=== PATIENT | male | born 1945 | race Caucasian/White ===

== ENCOUNTER 2017-07-26 08:33 | Outpatient (RCR) | payer MEDICARE, SELFPAY | END 2017-08-03 23:59 | LOC: DC 08:33 | PROVIDERS: Family Provider Family Medicine; PCP Family Medicine; Visit Provider Family Medicine | DX: E11.9 Type 2 diabetes mellitus without complications (principal); Z71.3 Dietary counseling and surveillance | CPT/HCPCS: 97802 ==

== ENCOUNTER 2017-08-24 08:30 | Outpatient (RCR) | payer MEDICARE, SELFPAY ==
[2017-07-20 14:33] VITALS: BP 111/71; BMI 17.5
== END 2017-08-31 23:59 ==
LOC: DC 08:30
PROVIDERS: Family Provider Family Medicine; PCP Family Medicine; Visit Provider Family Medicine
DX: E11.9 Type 2 diabetes mellitus without complications (principal); Z71.3 Dietary counseling and surveillance
CPT/HCPCS: 97803; G0108

== ENCOUNTER 2017-09-06 09:49 | Outpatient (RCR) | payer MEDICARE, SELFPAY | END 2017-10-01 23:59 | LOC: DC 09:49 | PROVIDERS: Family Provider Family Medicine; PCP Family Medicine; Visit Provider Family Medicine | DX: E11.9 Type 2 diabetes mellitus without complications (principal); Z71.3 Dietary counseling and surveillance | CPT/HCPCS: 97803 ==

== ENCOUNTER → 2017-10-04 11:57 | Outpatient (CLI) | payer MEDICARE, SELFPAY ==
[2017-10-04 12:23] LABS: Anion Gap 7 (5-15); BUN 20 mg/dL (7-18); BUN/Creat Ratio 21.6 RATIO (10-20); Calcium,Total 8.7 mg/dL (8.5-10.1); Chloride 107 mmol/L (98-107); Cholesterol 106 mg/dL (200); Creatinine, Serum 0.92 mg/dL (0.70-1.30); EST Glomerular Filtration Rate 85 mL/min (>60); Est Glom Filt Rate - Afr Amer 103 mL/min (>60); Glucose 134 mg/dL (74-106); Hemoglobin A1c 6.6 % (4.2-6.3); High Density Lipoprotein 47 mg/dL; Potassium 4.1 mmol/L (3.5-5.1); Sodium Level 141 mmol/L (136-145); Triglycerides 62 mg/dL; Very Low Density Lipoprotein 12 mg/dL (5-40)
[2017-10-04 12:33] LABS: Microalbumin,Random Urine 10.4 mg/L (NO RANGE EST.); Microalbumin:Creatinine Ratio 9.3 mg/g CRE (<30 mg/g CRE)
== END ==
PROVIDERS: Family Provider Family Medicine; PCP Family Medicine; Visit Provider Family Medicine
DX: E11.9 Type 2 diabetes mellitus without complications (principal); Z79.4 Long term (current) use of insulin; E78.5 Hyperlipidemia, unspecified
CPT/HCPCS: 80048; 80061; 82043; 82570; 83036

== ENCOUNTER 2017-10-06 15:23 | Outpatient (RCR) | payer MEDICARE, SELFPAY | END 2017-10-31 23:59 | LOC: DC 15:23 | PROVIDERS: Family Provider Family Medicine; PCP Family Medicine; Visit Provider Family Medicine | DX: E11.9 Type 2 diabetes mellitus without complications (principal); Z71.3 Dietary counseling and surveillance | CPT/HCPCS: G0109 ==

== ENCOUNTER 2017-11-23 14:00 | Outpatient (RCR) | payer MEDICARE, SELFPAY | END 2017-12-01 23:59 | LOC: DC 14:00 | PROVIDERS: Family Provider Family Medicine; PCP Family Medicine; Visit Provider Family Medicine | DX: E11.9 Type 2 diabetes mellitus without complications (principal); Z71.3 Dietary counseling and surveillance | CPT/HCPCS: G0109 ==

== ENCOUNTER 2017-12-14 14:22 | Outpatient (RCR) | payer MEDICARE, SELFPAY | END 2017-12-31 23:59 | LOC: DC 14:22 | PROVIDERS: Family Provider Family Medicine; PCP Family Medicine; Visit Provider Family Medicine | DX: E11.9 Type 2 diabetes mellitus without complications (principal); Z71.3 Dietary counseling and surveillance | CPT/HCPCS: G0109 ==

== ENCOUNTER → 2018-01-02 07:17 | Outpatient (CLI) | payer MEDICARE, SELFPAY ==
[2018-01-02 09:40] LABS: Hemoglobin A1c 6.9 % (4.2-6.3)
== END ==
PROVIDERS: Family Provider Family Medicine; PCP Family Medicine; Visit Provider Nurse Practitioner
DX: E11.9 Type 2 diabetes mellitus without complications (principal)
CPT/HCPCS: 36415; 83036

== ENCOUNTER 2018-01-11 15:59 | Outpatient (RCR) | payer MEDICARE, SELFPAY | END 2018-01-11 23:59 | LOC: DC 15:59 | PROVIDERS: Family Provider Family Medicine; PCP Family Medicine; Visit Provider Family Medicine | DX: E11.9 Type 2 diabetes mellitus without complications (principal); Z71.3 Dietary counseling and surveillance | CPT/HCPCS: G0109 ==

== ENCOUNTER 2018-01-27 05:57 | Emergency (ER) | payer MEDICARE, SELFPAY ==
[2018-01-27 05:58] VITALS: BP 114/63; PULSE 66; RESP 16; TEMP 36.1; O2SAT 100; BMI 23.3
--- NOTE | 2018-01-27 06:21 | RAD_ITS ---
STUDY: X-RAY - UNILATERAL RIBS ( RIGHT ) WITH CHEST REASON FOR EXAM: Male, 73 years old. Trauma TECHNIQUE - RIBS: 3 view(s) of the ribs. TECHNIQUE - CHEST: Single frontal view of the chest. COMPARISON: Chest 08/03/2014 FINDINGS - RIBS: A nondisplaced fracture of right rib 8 is suspected. FINDINGS - CHEST: The lungs are clear and expanded. There is no demonstrated pleural abnormality. Normal size heart. Normal mediastinum and lucila. Normal visualized pulmonary arteries. Normal visualized aortic arch and descending thoracic aorta. Normal visualized thoracic spine. There is no demonstrated abnormality of the visualized soft tissue structures of the upper abdomen. RAD/Ribs Uni Min 3V w/PA Chest IMPRESSION: RIBS: A nondisplaced fracture of right rib 8 is suspected. CHEST: No acute pulmonary findings. Electronically Signed: Daniel Sparrow MD at 7:22 EDT Tel , Service support ,
--- NOTE | 2018-01-27 06:31 | ED.DCSUM_ITS ---
History of Present Illness Chief Complaint: Fall Informant: Patient Onset: Yesterday Context: Sudden Onset Timing: Continuous Quality: ache/sore Current Severity: Moderate Maximum Severity: Severe Worsened by: movement, especially w/ sitting up. mildly worse w/ deep inspiration Relieved by: remaining still Associated Symptoms: no other injuries except abrasion to right forearm. no dyspnea. Narrative: Patient tripped or slipped, falling down 2 steps to concrete below at his home. Right on his right rib cage. This occurred last night, 10 or so hours prior to arrival in the ED. The pain has worsened overnight, and he states lying on his right side hurts the worse, as does sitting up actively. - Past Medical History (1) Diabetes mellitus type 2, controlled, without complications Status: Chronic Comment: Has been able to bring A1c from 7 range down to 6.6 without as many lows. However now that warmer weather is here he is having more low BG. I have ask him to take lantus down to 11-12 from his current dose of 13 as his low BG are related to long acting insulin. His meal coverage appears neutral. On asa On statin On artemio inhibitor; BP in range. Past Medical History - Allergies and Home Meds Allergies/Adverse Reactions: Allergies Antihistamines - Alkylamine Allergy (Verified 01/27/18 05:58) Other SHRIMP Allergy (Uncoded 01/27/18 05:58) Anaphylaxis Primary Care Physician: Naldo Santillan III, MD [Primary Care Provider] - 1 Week if not improving Lives: Spouse/ Significant Other Smoking Status: Never smoker Review of Systems All systems negative except as indicated Cardiovascular: Reports: Chest pain. Denies: Palpitations Respiratory: Denies: Dyspnea, Cough Gastrointestinal: Denies: Abdominal pain, Nausea, Vomiting Musculoskeletal: Reports: Back pain - Right ribs, mid back. Denies: Neck pain, Extremity Pain Skin: Reports: Abrasions Neurological: Denies: Headache, Weakness, Parasthesia Physical Exam Vital Signs/Narrative: Vital Signs Temp Pulse Resp BP Pulse Ox 01/27/18 05:58 97.0 F L 66 16 114/63 100 Inital Vital Signs reviewed: Yes General: Well nourished, Well developed, - - Well-appearing in no acute distress Head: Normocephalic, Atraumatic Eyes: Perrl, EOMI Neck: Supple, Nontender Cardiovascular: Regular rate, Regular rhythm, No murmurs Respiratory: No distress, CTA bilaterally, Chest tenderness - Mostly at right rib #7 or 8, just below right breast. No crepitance or subcutaneous emphysema. No bruising or external evidence of trauma., - - Equal breath sounds bilaterally. No splinting with deep inspiration. Abdomen: Soft, Nontender, Nondistended, Normal bowel sounds Back: Normal Inspection, - - Mildly tender to palpation right mid back paraspinal area. Negative for: Spinal tenderness Extremities: Nontender, No edema, - - Full range of motion all 4 extremities including right upper extremity at the elbow Skin: Normal color, No rash, Trauma - Superficial abrasions right dorsal proximal forearm, just distal to olecranon process. No tenderness. No lacerations. Neurological: Alert, Oriented x3, Cranial nerves II-XII grossly intact, Normal Strength, Normal Sensation, Normal Gait Psychological: Normal affect Diagnostic/Tx/Re-eval Impressions Ribs w/Chest X-Ray 01/27/18 06:21 IMPRESSION: RIBS: A nondisplaced fracture of right rib 8 is suspected. CHEST: No acute pulmonary findings. Electronically Signed: Daniel Sparrow MD at 7:22 EDT Tel , Service support , 01/27/18 06:21 Ribs Uni Min 3V w/PA Chest [RAD] Stat - Medical Decision Making Patient declined analgesics. X-rays show nondisplaced fracture of the right eighth rib, consistent with where he is tender. No pneumothorax or signs of a pulmonary contusion. He is clinically and hemodynamically stable. He is agreeable to taking a prescription for [facility] to use as needed, given appropriate discharge instructions and follow-up. ED Disposition - Plan for ED Patient: Disposition: Home or Assisted Living Chief Complaint: Fall Diagnosis: Right rib fracture Instructions: ED Fx Rib Prescriptions: Hydrocodone/Acetaminophen [[facility] 5-325 Tablet] 1 - 2 ea PO 4X/DAY PRN PRN 3 Days #12 tab PRN Reason: Pain Referrals: Naldo Santillan III, MD [Primary Care Provider] - 1 Week if not improving
--- NOTE | 2018-01-27 06:52 | NURSING ---
NO LW OR POA
== END 2018-01-27 07:55 | disposition home or self-care (01) ==
PROVIDERS: Emergency Provider Emergency Medicine; Family Provider Family Medicine; PCP Family Medicine
DX: S22.31XA Fracture of one rib, right side, initial encounter for closed fracture (principal); W10.8XXA Fall (on) (from) other stairs and steps, initial encounter; Y93.89 Activity, other specified; Y92.009 Unspecified place in unspecified non-institutional (private) residence as the place of occurrence of the external cause; E11.9 Type 2 diabetes mellitus without complications; Z79.4 Long term (current) use of insulin; Z79.84 Long term (current) use of oral hypoglycemic drugs; Z79.82 Long term (current) use of aspirin; Z79.899 Other long term (current) drug therapy
CPT/HCPCS: 71101; 99282

== ENCOUNTER → 2018-03-28 06:56 | Outpatient (CLI) | payer MEDICARE, SELFPAY ==
[2018-03-28 08:13] LABS: Hemoglobin A1c 6.5 % (4.2-6.3)
[2018-03-28 08:18] LABS: AST(SGOT) 17 U/L (15-37); Alanine Aminotransfer ALT/SGPT 24 U/L (16-61); Albumin, Serum 3.5 g/dL (3.2-5.0); Alkaline Phosphatase 82 U/L (45-117); Anion Gap 5 (5-15); BUN 12 mg/dL (7-18); Calcium,Total 8.8 mg/dL (8.5-10.1); Chloride 105 mmol/L (98-107); Creatinine, Serum 0.92 mg/dL (0.70-1.30); EST Glomerular Filtration Rate 85 mL/min (>60); Est Glom Filt Rate - Afr Amer 103 mL/min (>60); Globulin 3.5 g/dL (2.2-4.2); Glucose 62 mg/dL (74-106); Potassium 3.9 mmol/L (3.5-5.1); Sodium Level 140 mmol/L (136-145); Thyroid Stim Hormone (TSH) 6.12 uIU/mL (0.358-3.74)
== END ==
PROVIDERS: Family Provider Family Medicine; PCP Family Medicine; Referring Provider Nurse Practitioner; Visit Provider Nurse Practitioner
DX: E11.9 Type 2 diabetes mellitus without complications (principal); Z79.4 Long term (current) use of insulin
CPT/HCPCS: 36415; 80053; 83036; 84443

== ENCOUNTER → 2018-05-08 06:57 | Outpatient (CLI) | payer MEDICARE, SELFPAY ==
[2018-05-08 09:22] LABS: Free T3 2.6 pg/mL (2.18-3.98); T4 Free Direct 0.77 ng/dL (0.76-1.46); Thyroid Stim Hormone (TSH) 6.51 uIU/mL (0.358-3.74)
[2018-05-09 13:40] LABS: Thyroid Peroxidase AB 64 IU/mL (0-34)
== END ==
PROVIDERS: Family Provider Family Medicine; PCP Family Medicine; Referring Provider Nurse Practitioner; Visit Provider Nurse Practitioner
DX: R94.6 Abnormal results of thyroid function studies (principal)
CPT/HCPCS: 36415; 84439; 84443; 84481; 86376

== ENCOUNTER → 2018-06-20 07:35 | Outpatient (CLI) | payer MEDICARE, SELFPAY ==
[2018-06-19 09:26] VITALS: BMI 24.1
[2018-06-20 08:21] LABS: Hemoglobin A1c 7.6 % (4.2-6.3)
[2018-06-20 08:35] LABS: ALB/GLOB Ratio 1.1 RATIO (0.9-2.4); AST(SGOT) 19 U/L (15-37); Alanine Aminotransfer ALT/SGPT 26 U/L (16-61); Albumin, Serum 3.7 g/dL (3.2-5.0); Alkaline Phosphatase 87 U/L (45-117); Anion Gap 9 (5-15); BUN 15 mg/dL (7-18); BUN/Creat Ratio 15.7 RATIO (10-20); Calcium,Total 8.7 mg/dL (8.5-10.1); Chloride 107 mmol/L (98-107); Cholesterol 138 mg/dL (200); Creatinine, Serum 0.96 mg/dL (0.70-1.30); EST Glomerular Filtration Rate 82 mL/min (>60); Est Glom Filt Rate - Afr Amer 99 mL/min (>60); Globulin 3.4 g/dL (2.2-4.2); Glucose 74 mg/dL (74-106); High Density Lipoprotein 60 mg/dL; Potassium 4.5 mmol/L (3.5-5.1); Protein, Total 7.1 g/dL (6.4-8.2); Sodium Level 144 mmol/L (136-145); Thyroid Stim Hormone (TSH) 5.05 uIU/mL (0.358-3.74); Triglycerides 79 mg/dL; Very Low Density Lipoprotein 16 mg/dL (5-40)
--- OUTSIDE RECORDS SUMMARY | 2018-09-21 12:36 | XMS RPT_ITS ---
:1945 Author Organization OHIP Support Name Relationship Address Phone ELIO, RUTH Unavailable [address] + [place] [address] R Unavailable Unavailable Unavailable ELIO, RUTH Unavailable [address] + [place] [address] R Unavailable Unavailable Unavailable ELIO, RUTH Unavailable [address] + [place] [address] R Unavailable Unavailable Unavailable ELIO, RUTH Unavailable [address] + [place] [address] R Unavailable Unavailable Unavailable ELIO, RUTH Unavailable [address] + [place] [address] R Unavailable Unavailable Unavailable ELIO, RUTH Unavailable [address] + [place] [address] R Unavailable Unavailable Unavailable ELIO, RUTH Unavailable [address] + [place] [address] R Unavailable Unavailable Unavailable ELIO, RUTH Unavailable [address] + [place] [address] R Unavailable Unavailable Unavailable ELIO, RUTH Unavailable [address] + [place] [address] R Unavailable Unavailable Unavailable ELIO, RUTH Unavailable [address] + [place] [address] R Unavailable Unavailable Unavailable ELIO, RUTH Unavailable [address] + [place] [address] R Unavailable Unavailable Unavailable ELIO, RUTH Unavailable [address] + [place] [address] R Unavailable Unavailable Unavailable ELIO, RUTH Unavailable [address] + [place] [address] R Unavailable Unavailable Unavailable ELIO, RUTH Unavailable Unavailable + [place] [address] R Unavailable Unavailable Unavailable ELIO, RUTH Unavailable Unavailable + [place] [address] R Unavailable Unavailable Unavailable ELIO, RUTH Unavailable . + [place] [address] R Unavailable Unavailable Unavailable ELIO, RUTH Unavailable . + [place] [address] R Unavailable Unavailable Unavailable ELIO, RUTH Unavailable . + [place] [address] R Unavailable Unavailable Unavailable Care Team Providers Name Role Phone CEBUL III, NALDO A Referring Unavailable CEBUL III, NALDO A Attending Unavailable CEBUL III, NALDO A Referring Unavailable CEBUL III, NALDO A Attending Unavailable CEBUL III, NALDO A Attending Unavailable CEBUL III, NALDO A Referring Unavailable Shook, Migdalia Shore BUSINESS REPRESENTATIVE-C Attending Unavailable Cebul III, Naldo Referring Unavailable Shook, Migdalia Shore BUSINESS REPRESENTATIVE-C Attending Unavailable ShookMigdalia BUSINESS REPRESENTATIVE-C Referring Unavailable Cebul III, Naldo Primary Care Unavailable Cebul III, Naldo Attending Unavailable Cebul III, Naldo Referring Unavailable Cebul III, Naldo Primary Care Unavailable Cebul III, Naldo Consulting Unavailable ShookMigdalia BUSINESS REPRESENTATIVE-C Attending Unavailable Cebul III, Naldo Referring Unavailable Cebul III, Naldo Attending Unavailable Cebul III, Naldo Referring Unavailable Cebul III, Naldo Primary Care Unavailable Cebul III, Naldo Consulting Unavailable Cebul III, Naldo Attending Unavailable Cebul III, Naldo Referring Unavailable Cebul III, Naldo Primary Care Unavailable Cebul III, Naldo Consulting Unavailable Cebul III, Naldo Attending Unavailable Cebul III, Naldo Primary Care Unavailable Cebul III, Naldo Referring Unavailable ShookMigdalia BUSINESS REPRESENTATIVE-C Attending Unavailable Cebul III, Naldo Referring Unavailable Cebul III, Naldo Attending Unavailable Cebul III, Naldo Referring Unavailable Cebul III, Naldo Primary Care Unavailable Cebul III, Naldo Consulting Unavailable Cebul III, Naldo Attending Unavailable Cebul III, Naldo Referring Unavailable Cebul III, Naldo Primary Care Unavailable Cebul III, Naldo Consulting Unavailable ShookMigdalia BUSINESS REPRESENTATIVE-C Attending Unavailable Cebul III, Naldo Referring Unavailable Cebul III, Naldo Attending Unavailable Cebul III, Naldo Referring Unavailable Cebul III, Naldo Primary Care Unavailable Cebul III, Naldo Consulting Unavailable ShookMigdalia BUSINESS REPRESENTATIVE-C Attending Unavailable ShookMigdalia BUSINESS REPRESENTATIVE-C Referring Unavailable Cebul III, Naldo Primary Care Unavailable Cebul III, Naldo Primary Care Unavailable GABRIELLA, ESAU Attending Unavailable Cebul III, Naldo Attending Unavailable Cebul III, Naldo Referring Unavailable Cebul III, Naldo Primary Care Unavailable Cebul III, Naldo Consulting Unavailable ShosarinaMigdalia BUSINESS REPRESENTATIVE-C Attending Unavailable Cebul III, Naldo Referring Unavailable Cebul III, Naldo Primary Care Unavailable Shosarina Migdalia Shore BUSINESS REPRESENTATIVE-C Attending Unavailable Shosarina Migdalia Shore BUSINESS REPRESENTATIVE-C Referring Unavailable Cebul III, Naldo Primary Care Unavailable ShosarinaMigdalia BUSINESS REPRESENTATIVE-C Attending Unavailable Shook Migdalia Shore BUSINESS REPRESENTATIVE-C Referring Unavailable Cebul III, Naldo Primary Care Unavailable PROBLEMS PROBLEMS DATE TYPE CONDITION / CODE ATTENDING STATUS SOURCE 06/19/2018 Unknown E11.9 - Type 2 Migdalia Monsalve Active [place] diabetes mellitus BUSINESS REPRESENTATIVE-C Community without Hospital complications / Repository E11.9(ICD-10) 06/19/2018 Unknown E10.9 - Type 1 Migdalia Monsalve Active [place] diabetes mellitus BUSINESS REPRESENTATIVE-C Community without Hospital complications / Repository E10.9(ICD-10) 06/19/2018 Unknown E03.9 - Migdalia Monsalve Active [facility] Hypothyroidism, BUSINESS REPRESENTATIVE-C Community unspecified / Hospital E03.9(ICD-10) Repository 03/27/2018 Unknown 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 Monsalve Active [place] (current) use of BUSINESS REPRESENTATIVE-C Community insulin / Hospital Z79.4(ICD-10) Repository 01/27/2018 Unknown S22.31XA - Fracture ESAU QUIROZ Active [place] of one rib, right Community side, initial Hospital encounter for Repository closed fracture / S22.31XA(ICD-10) 04/02/2015 Active Hyperlipidemia, NA Active [facility] unspecified / [facility] [place] E78.5(ICD-10) Repository 10/04/2017 Active Type 2 diabetes NA Active [facility] mellitus without [facility] [place] complications / Repository E11.9(ICD-10) 10/04/2017 Active assisted (current) NA Active [facility] use of insulin / [facility] [place] Z79.4(ICD-10) Repository PROCEDURES PROCEDURES No Procedure Records FoundRESULTS RESULTS PROGRESS Observed: 07/01/2018 Status: COMPLETED Source: [place] 3:38 PM [facility] RE[facility]ITORY HNO ID: [id number] Author: Naldo Santillan III Service: (none) Author Type: Physician Type: Progress Notes Filed: 07/01/2018 3:38 PM Note Text: Doroteo, The hemoglobin A1c has increased from 6.9-7.6. You need to tighten up your diet a lot better and be sure to continue exercise. Follow up with PEMA monsalve if she is the primary residential leasing manager of your diabetic medication doses. We will need another hemoglobin A1c in 3 months. Naldo Santillan III, MD, FAAFP HEMOGLOBIN A1C Collected: 06/20/2018 Status: F Source: [place] 7:40 AM [facility] REPOSITORY TYPE CODE TESTS RESULT OUT OF RANGE REFERENCE UNITS LAB L501.9985 4.2-6.3 % High HGB A1C 7.6 Performed By: #### L501.9985 #### [facility] [address] [place], [place], [address] COMPREHENSIVE METABOLIC Collected: 06/20/2018 Status: F Source: [facility] 7:40 AM [facility] REPOSITORY TYPE CODE TESTS RESULT OUT OF RANGE REFERENCE UNITS LAB L501.0100 74-106 mg/dL Normal GLU 74 Result Comment: Please note revised GLUCOSE reference range effective 2017. LAB L501.1000 7-18 mg/dL Normal BUN 15 LAB L501.1100 0.70-1.30 mg/dL Normal CREAT,SERUM 0.96 Result Comment: The validity of the calculated GFR AND GFRAA in patients over 70 years has not been determined. Clinical correlation is essential. LAB L501.1110 >60 mL/min Normal EST GFR 82 Result Comment: Non- GFR Calc LAB L501.1115 >60 mL/min Normal EST GFR - AA 99 Result Comment: GFR Calc LAB L501.1300 10-20 RATIO Normal BUN/CRE 15.7 LAB L501.1500 6.4-8.2 g/dL T Normal PROT 7.1 LAB L501.1800 3.2-5.0 g/dL Normal ALB 3.7 LAB L501.1950 2.2-4.2 g/dL Normal GLOB 3.4 LAB L501.2000 0.9-2.4 RATIO Normal A/G 1.1 LAB L501.2200 8.5-10.1 mg/dL CA Normal 8.7 LAB L501.4100 15-37 U/L Normal AST 19 LAB L501.4305 45-117 U/L Normal ALK P 87 LAB L501.4405 16-61 U/L Normal ALT 26 LAB L501.4600 0.20-1.00 mg/dL T Normal BILI 0.80 LAB L501.5300 136-145 mmol/L NA Normal 144 LAB L501.5600 3.5-5.1 mmol/L K Normal 4.5 LAB L501.5900 98-107 mmol/L CL Normal 107 LAB L501.6100 21.0-32.0 mmol/L Normal CO2 28.0 LAB L501.6200 5-15 Normal GAP 9 Performed By: #### L500.4050, L500.4100, L501.9520 #### [facility] [address] [place], [place], [id number] LIPID PROFILE Collected: 06/20/2018 Status: F Source: [place] 7:40 AM [facility] REPOSITORY TYPE CODE TESTS RESULT OUT OF RANGE REFERENCE UNITS LAB L501.4900 200 mg/dL Normal CHOL 138 Result Comment: <200 mg/dL Desirable 200-240 mg/dL Borderline >240 mg/dL High Risk LAB L501.5000 mg/dL Normal TRIG 79 Result Comment: The drugs N-Acetylcysteine and Metamizole may falsely depress this assay. Serum Triglycerides Reference Interval Normal <150 mg/dL Borderline high 150 - 199 mg/dL High 200 - 499 mg/dL Very High > or = 500 mg/dL LAB L501.6400 mg/dL Normal HDL 60 Result Comment: The drugs N-Acetylcysteine and Metamizole may falsely depress this assay. Reference Range HDL <40 mg/dL Low HDL Cholesterol HDL >or= 60 mg/dL High HDL Cholesterol LAB L501.6500 0-130 mg/dL Normal LDL 62 LAB L501.6600 5-40 mg/dL Normal VLDL 16 Performed By: #### L500.4050, L500.4100, L501.9520 #### [facility] [address] [place], [place], [id number] THYROID STIM HORMONE Collected: 06/20/2018 Status: F Source: [place] ([facility]) 7:40 AM [facility] REPOSITORY TYPE CODE TESTS RESULT OUT OF RANGE REFERENCE UNITS LAB L501.9520 0.358-3.74 uIU/mL High TSH 5.05 Performed By: #### L500.4050, L500.4100, L501.9520 #### [facility] [address] [place], [address] ENDOCRINOLOGY VISIT Observed: 06/19/2018 Status: F Source: [place] REPORT 1:00 PM [facility] REPOSITORY [facility] [address] [place] [address] OFFICE VISIT Date of Service: 06/19/18 MR#: [id number] Acct: [id number] Name: WESLEY BARFIELD Rep #: [id number] : 1945 Provider: Migdalia Monsalve NP Age/Sex: 73/M Location: [facility] Status: Signed HPI History of present illness Wesley Barfield is a 73 year old male who presents for follow up of diabetes type 2. Reports most BG average 137. He is now having low BG at night while sleeping again but not as frequent during the day. Currently he is taking lantus 12 units daily and meal coverage with humalog 4 units each meal. Pt denies difficulty with injections or self monitoring of BG. Denies any signs of infection or irritation at site of injections. Reports taking insulin as directed At time of visit: -Pt denies symptoms of hypertensive emergency (CP,SOB,CONNELLY, or blurred vision) and hypotension(dizziness or lightheadedness) -Pt denies symptoms of hypoglycemia ( sweaty, confusion, anxiety, tremor, hunger, palpitations) and hyperglycemia ( polydipsia, polyuria) -Pt denies potential medication adverse effect. Hypoglycemia Aware of hypoglycemia: yes Able to self treat low BG: Yes Frequent low Blood sugar: No Has supply of glucagon: Yes Type: type 2 SMBG 4-6 times daily A1c in range BG 50-140 Thyroid labs remains with elevated TSH and low normal T4. Patient reports brain fog and fatigue. Severity, modifying factors, context, and associated signs and symptoms are as follows: Thyroid pain: No Energy: Reduced Sleep: awakened refreshed Temp: No intolerance GI: Normal bowel Weight: Flucuates Eyes: No change in vision Memory: unchanged Diaphoresis: Not significant Skin: Dry Hair : Unchanged Neuro: No numbness, tingling or tremors Exam Const General: healthy appearing, comfortable, no acute distress Nutritional Appearance: average body habitus Orientation: oriented x3 HENMT Head: normal to inspection, atraumatic Ears: hearing grossly normal bilaterally Nose: no nasal discharge Mouth: oral mucosae normal, moist mucous membranes Teeth and gingiva: dentition normal Eyes General: appearance normal, both eyes and all related structures Eyelids: eyelids normal Conjunctivae: conjunctivae normal Sclera: sclerae normal Neck Neck: normal visual inspection Chest Chest palpation AND inspection: deferred Resp Effort AND Inspection: normal respiratory effort, able to speak in complete sentences, symmetric chest movement Cardio Rate: regular rate Rhythm: regular rhythm Heart Sounds: S1 normal, S2 normal GI Inspection: normal to inspection Auscultation: normal bowel sounds Palpation: soft Skin General: no rashes or lesions noted Wounds: no wounds Neuro General: gait normal, moves all extremities Cranial Nerves: CN's II-XI intact bilaterally Extrem General: normal to inspection, full ROM, normal capillary refill Psych Appearance: well kempt Mental Status: mental status grossly normal Mood: congruent mood Affect: normal affect Speech and Movement: speech and movement normal Attitude: cooperative Thought Process: normal Thought Content: normal Judgment: judgment good Type: type 1, insulin-requiring Glucose control symptoms: Reports hypoglycemic with activity and nocturnal hypoglycemia Weight and fatigue symptoms: Reports weight gain; denies snoring Cardiopulmonary symptoms: Denies chest pain at rest, dyspnea on exertion, lightheadedness or myalgias GI symptoms: Denies constipation, diarrhea, nausea/dyspepsia or vomiting Skin and extremity symptoms: Denies erectile dysfunction or tingling/numbness/burning Other symptoms: Denies blurry vision or change in vision Pertinent visit history: Denies recent visit to ER, recent hospital admission or recent 911 calls Self monitoring: Yes Percentage of fasting blood glucose within goal: >50% of the time Dietary compliance: Diabetes: good Diabetes education in past year: Yes Glucose testing: demonstrates correct use of meter, understands testing schedule Sick day education - understands ketone testing: Yes Physical activity: regular Intake Vital Signs06/19/18 Height 5 ft 9 in 06/19/18 Weight: 163 lb 8 oz 06/19/18 Body Mass Index (BMI) 24.1 06/19/18 Blood Pressure 117/71 06/19/18 Blood Pressure Location Lt popliteal 06/19/18 Blood Pressure Position Sitting Intake Visit Reasons: Diabetes follow-up Head Of History Required: No Accompanied by: Self Allergies Antihistamines - Alkylamine Allergy (Verified 06/19/18 09:24) Other SHRIMP Allergy (Uncoded 06/19/18 09:24) Anaphylaxis Medications acetylcysteine (bulk) powder ea MISCELLANEOUS 07/20/17 [History Confirmed 06/19/18] aspirin 81 mg tablet,delayed release 81 mg PO QDAY 07/20/17 [History Confirmed 06/19/18] cholecalciferol (vitamin D3) 1,000 unit capsule 1,000 unit PO QDAY cap 07/20/17 [History Confirmed 06/19/18] insulin aspart U- 100 100 unit/mL subcutaneous solution See Rx Instructions SC QDAY 07/20/17 [History Confirmed 06/19/18] insulin glargine (U-100) 100 unit/mL (3 mL) subcutaneous pen 15 unit SC QDAY 07/20/17 [History Confirmed 06/19/18] lisinopril 5 mg tablet 5 mg PO QDAY 07/20/17 [History Confirmed 06/19/18] lovastatin 20 mg tablet 20 mg PO QDAY 07/20/17 [History Confirmed 06/19/18] magnesium 200 mg tablet 400 mg PO QDAY tab 07/20/17 [History Confirmed 06/19/18] metformin 500 mg tablet 500 mg PO BID 07/20/17 [History Confirmed 06/19/18] multivitamin capsule 1 cap PO QDAY 07/20/17 [History Confirmed 06/19/18] saw palmetto fruit 450 mg capsule 450 mg PO QDAY cap 07/20/17 [History Confirmed 06/19/18] sertraline 50 mg tablet 50 mg PO QDAY 07/20/17 [History Confirmed 06/19/18] thisilyn PO 07/20/17 [History Confirmed 06/19/18] Hydrocodone/Acetaminophen [[place] 5-325 Tablet] 1 - 2 ea PO 4X/DAY PRN PRN 3 Days #12 tab 01/27/18 [Rx Confirmed 06/19/18] levothyroxine 25 mcg tablet 25 mcg PO DAILY #30 tab 06/19/18 [Rx Confirmed 06/19/18] Nurse's Note: blood sugars : low : 60 high : 199 PFSH Medical History Back problem (Acute) Diabetes type 2, controlled (Acute) H/O: pneumonia (Acute) Surgical History History of tonsillectomy (Acute) Family History Unknown Cancer Diabetes Kidney stones CVA (cerebral vascular accident) Social History Smoking Status: Never smoker alcohol intake: current alcohol intake frequency: a few times a month substance use type: does not use ROS Const Constitutional: Positive for fatigue; no anorexia, body ache, chills, fever(s), frequent falls, decreased energy, malaise, night sweats, weakness, weight change, sleep problems, abnormal sleep pattern, change in appetite, other, headache(s), snoring or excessive sweating Eyes Eyes: No blurry vision, change in vision, double vision, discharge, dry eyes, bulging eyes, floaters, visual disturbances, eye pain, light sensitivity, spots in vision, tunnel vision or other ENT ENT: No abnormal hearing, ear pain, ear discharge, ear pressure, hearing loss, tinnitus, dizziness/vertigo, balance problems, nosebleed/epistaxis, nasal congestion, nasal obstruction, nose pain, sinus pressure, sinus pain, nasal discharge, post nasal drip, headache(s), facial pain, dental pain, dry mouth, bad breath, hoarseness, lip swelling, mouth lesions, mouth pain, sore throat, tongue swelling, throat swelling, other, difficulty swallowing or neck pain Resp Respiratory: No cough, change in phlegm color, chest congestion, excessive phlegm production, hemoptysis, pain on inspiration, shortness of breath, pain with cough, snoring, stridor, wheezing or other Cardio Cardiology: No chest pain at rest, chest pain with exertion, leg pain with exertion, excessive sweating, shortness of breath, dyspnea on exertion, generalized swelling, irregular heart rhythm, lightheadedness, orthopnea, radiating jaw, neck or arm pain, fast heart rate, slow heart rate, palpitations or other Gastro GI: No abdominal pain, belching, bloating, change in bowel habits, change in stool character, coffee ground emesis, constipation, cramping, diarrhea, heartburn, difficulty swallowing, feeling full early, excessive flatus, incontinent of stools, Vomiting blood/hematemesis, blood in stool, loose stools, Black,tarry stools, nausea/dyspepsia, pain with swallowing, vomiting or other Genitourinary Male: No difficulty urinating, burning urination, painful urination, urinary incontinence, urinary frequency, urinary urgency, urinary hesitancy, urinary retention, blood in urine, Frequent nighttime urination/ nocturia, post void dribbling, suprapubic fullness, side pain, sexual problems, genital lesions, genital itching, erectile dysfunction, penile discharge, difficulty with ejaculations, blood in semen, scrotal swelling, testicle lump, testicle pain or other Musc Musculoskeletal: No abnormal walking, joint pain, back pain, deformity, joint swelling, limited range of motion, loss of height, muscle cramps, muscle weakness, decreased muscle mass, body aches, neck pain, numbness, radiating pain into limb, stiffness, tingling or other Skin Skin: No acne, hair loss, change in hair, nail changes, boil, change in skin color, dry skin, redness, excessive hair growth, yellowing of the skin, lesions, itching, rash, skin pain, skin ulcer, sores, skin swelling, wounds or other Breast Breast: No other Neuro Neurology: No frequent falls, weakness, visual disturbances, abnormal hearing, headache(s), abnormal walking, numbness or tingling Psych Psychiatric: No abnormal sleep pattern, No change in appetite Endo Endocrine: Positive for fatigue; no other or excessive sweating Aller/Imm Allergy/Immunologic: No lip swelling, tongue swelling, throat swelling, wheezing or itchy eyes Assessment AND Plan 1. Controlled type 2 diabetes mellitus without complication, with long-term current use of insulin E11.9 Orders Orders: 2. Hypothyroidism determined by thyroid function test E03.9; R94.6 Plan Diabetes: Having low BG frequently after corrections and after evening meal. Ask to reduce coverage for both these issues. Did have one half unit insulin pens which he felt were great for him but he has just ordered three months of insulin and wants to wait until next 3 months to switch his prescription. Hypothyroidism: Will start on 12.5 mg daily of levothyroxine. Discussed issues of anxiety, diarrhea, heat intolerance need to be called to office. Discussed proper timing and adminstration of levothyroxine. Take on empty stomach. Do not take within 4 hours of calcium,iron or multivitamins. Labs for thyroid recheck in 4-5 weeks. Orders Orders: Medications New: levothyroxine Start with 1/2 tablet daily, then titrate a25 mcg PO DAILY 30 tabs 6RF s directed. Plan Detail Other Orders Orders: Additional Comments 1. Please schedule follow up in 3 months. 2. Lab work one week before appointment. 3. Discussed importance of regular exercise and recommend starting or continuing a regular exercise program for good health. 4. The patient was encouraged to lose weight for good health 5. The importance of monitoring blood sugar regularly was reviewed. 6. The importance of monitoring the HBA1c level regularly was reviewed. 7. The importance of prper foot care and regularly checking feet to prevent sores and loss of limbs was reviewed. 8. The importance of keeping BP at or below 130/80 to prevent stroke, heart attacks, kidney failure, blindness was reviewed. Spent approximately 30 minutes with patient with over 50% of time spent in discussion and counseling regarding medication adjustment, symptoms and treatment of hypoglycemia, diet adherence, and checking BG before driving. Coding Level of Care Code Off vis,est,level 4 Diagnoses Controlled type 2 diabetes mellitus without complication, with long-term current use of insulin E11.9 Diabetes mellitus hog buyer insulin use: with jail use Hypothyroidism determined by thyroid function test E03.9; R94.6 06/19/18 1300 <Electronically signed by Migdalia RAMOS> Date Migdalia RAMOS Cosigner Signature: Date (if applicable) CC: FREE T3 Collected: 05/08/2018 Status: F Source: [place] 7:02 AM [facility] REPOSITORY TYPE CODE TESTS RESULT OUT OF RANGE REFERENCE UNITS LAB L501.76411 2.18-3.98 pg/mL Normal FREE T3 2.6 Performed By: #### L501.13896, L501.9520, L506.0400 #### [facility] [address] [place], [address] THYROID STIM HORMONE Collected: 05/08/2018 Status: F Source: [place] (TSH) 7:02 AM [facility] REPOSITORY TYPE CODE TESTS RESULT OUT OF RANGE REFERENCE UNITS LAB L501.9520 0.358-3.74 uIU/mL High TSH 6.51 Performed By: #### L501.40023, L501.9520, L506.0400 #### [facility] [address] [place], [address] T4 FREE DIRECT Collected: 05/08/2018 Status: F Source: [place] 7:02 AM [facility] REPOSITORY TYPE CODE TESTS RESULT OUT OF RANGE REFERENCE UNITS LAB L506.0400 0.76-1.46 ng/dL Normal T4 FREE 0.77 DIRECT Performed By: #### L501.28295, L501.9520, L506.0400 #### [facility] [address] [place], [place], [address] THYROID PEROXIDASE AB Collected: 05/08/2018 Status: F Source: [place] 7:02 AM [facility] REPOSITORY TYPE CODE TESTS RESULT OUT OF RANGE REFERENCE UNITS LAB L3300.6900 0-34 IU/mL High TPO AB [id number] [phone] Result Comment: Performed at: - [facility] [id number] Anthropology Lecturer: Jovani Juarez PhD, Phone: [phone] Performed By: #### L3300.6900 #### [facility] (refer to report for specific site) refer to report for address and phone number ENDOCRINOLOGY VISIT Observed: 03/28/2018 Status: F Source: [place] REPORT 7:46 AM [facility] REPOSITORY [facility] [address] [place] [address]. [address] [place] [address] OFFICE VISIT Date of Service: 03/27/18 MR#: [id number] Acct: [id number] Name: WESLEY BARFIELD Rep #: [id number] : 1945 Provider: Migdalia Monsalve NP Age/Sex: 73/M Location: [facility] Status: Signed HPI History of present illness HPI History of present illness Wesley Barfield is a 73 year old male who presents for follow up of diabetes type 2. Reports most BG in good range with less frequent low BG. He is now having low BG at night while sleeping again but not as frequent during the day. Currently he is taking lantus 13 units daily and meal coverage with humalog 4 units each meal. Pt denies difficulty with injections or self monitoring of BG. Denies any signs of infection or irritation at site of injections. Reports taking insulin as directed At time of visit: -Pt denies symptoms of hypertensive emergency (CP,SOB,CONNELLY, or blurred vision) and hypotension(dizziness or lightheadedness) -Pt denies symptoms of hypoglycemia ( sweaty, confusion, anxiety, tremor, hunger, palpitations) and hyperglycemia ( polydipsia, polyuria) -Pt denies potential medication adverse effect. Hypoglycemia Aware of hypoglycemia: yes Able to self treat low BG: Yes Frequent low Blood sugar: No Has supply of glucagon: Yes Type: type 2 SMBG 4-6 times daily A1c in range BG 50-140 Exam Const General: healthy appearing, comfortable, no acute distress Nutritional Appearance: average body habitus Orientation: oriented x3 HENMT Head: normal to inspection, atraumatic Ears: hearing grossly normal bilaterally Nose: no nasal discharge Mouth: oral mucosae normal, moist mucous membranes Teeth and gingiva: dentition normal Eyes General: appearance normal, both eyes and all related structures Eyelids: eyelids normal Conjunctivae: conjunctivae normal Sclera: sclerae normal Neck Neck: normal visual inspection Chest Chest palpation AND inspection: deferred Resp Effort AND Inspection: normal respiratory effort, able to speak in complete sentences, symmetric chest movement Cardio Rate: regular rate Rhythm: regular rhythm Heart Sounds: S1 normal, S2 normal GI Inspection: normal to inspection Auscultation: normal bowel sounds Palpation: soft Skin General: no rashes or lesions noted Wounds: no wounds Neuro General: gait normal, moves all extremities Cranial Nerves: CN's II-XI intact bilaterally Extrem General: normal to inspection, full ROM, normal capillary refill Psych Appearance: well kempt Mental Status: mental status grossly normal Mood: congruent mood Affect: normal affect Speech and Movement: speech and movement normal Attitude: cooperative Thought Process: normal Thought Content: normal Judgment: judgment good Weight and fatigue symptoms: Denies snoring Cardiopulmonary symptoms: Denies chest pain at rest, dyspnea on exertion, lightheadedness or myalgias GI symptoms: Denies constipation, diarrhea, nausea/dyspepsia or vomiting Skin and extremity symptoms: Denies erectile dysfunction Other symptoms: Denies blurry vision or change in vision Intake Vital Signs03/27/18 Height 5 ft 9 in 03/27/18 Weight: 162 lb 6 oz 03/27/18 Body Mass Index (BMI) 24.0 03/27/18 Blood Pressure 118/70 03/27/18 Blood Pressure Location Lt popliteal 03/27/18 Blood Pressure Position Sitting Intake Visit Reasons: 3 MO FU Head Of History Required: No Accompanied by: Self Is patient in pain?: No Allergies Antihistamines - Alkylamine Allergy (Verified 03/27/18 07:55) Other SHRIMP Allergy (Uncoded 03/27/18 07:55) Anaphylaxis Medications acetylcysteine (bulk) powder ea MISCELLANEOUS 07/20/17 [History Confirmed 03/27/18] aspirin 81 mg tablet,delayed release 81 mg PO QDAY 07/20/17 [History Confirmed 03/27/18] cholecalciferol (vitamin D3) 1,000 unit capsule 1,000 unit PO QDAY cap 07/20/17 [History Confirmed 03/27/18] insulin aspart U- 100 100 unit/mL subcutaneous solution See Rx Instructions SC QDAY 07/20/17 [History Confirmed 03/27/18] insulin glargine (U-100) 100 unit/mL (3 mL) subcutaneous pen 15 unit SC QDAY 07/20/17 [History Confirmed 03/27/18] lisinopril 5 mg tablet 5 mg PO QDAY 07/20/17 [History Confirmed 03/27/18] lovastatin 20 mg tablet 20 mg PO QDAY 07/20/17 [History Confirmed 03/27/18] magnesium 200 mg tablet 400 mg PO QDAY tab 07/20/17 [History Confirmed 03/27/18] metformin 500 mg tablet 500 mg PO BID 07/20/17 [History Confirmed 03/27/18] multivitamin capsule 1 cap PO QDAY 07/20/17 [History Confirmed 03/27/18] saw palmetto fruit 450 mg capsule 450 mg PO QDAY cap 07/20/17 [History Confirmed 03/27/18] sertraline 50 mg tablet 50 mg PO QDAY 07/20/17 [History Confirmed 03/27/18] thisilyn PO 07/20/17 [History Confirmed 03/27/18] Hydrocodone/Acetaminophen [[place] 5-325 Tablet] 1 - 2 ea PO 4X/DAY PRN PRN 3 Days #12 tab 01/27/18 [Rx Confirmed 03/27/18] Nurse's Note: blood sugars : low : 49 high : 250 PFSH Medical History Back problem (Acute) Diabetes type 2, controlled (Acute) H/O: pneumonia (Acute) Surgical History History of tonsillectomy (Acute) Family History Unknown Cancer Diabetes Kidney stones CVA (cerebral vascular accident) Social History Smoking Status: Never smoker alcohol intake: current alcohol intake frequency: a few times a month substance use type: does not use ROS Const Constitutional: No anorexia, body ache, chills, fever(s), decreased energy, malaise, night sweats, weight change, sleep problems, abnormal sleep pattern, change in appetite, other, frequent falls, weakness, snoring, headache(s), fatigue or excessive sweating Eyes Eyes: No blurry vision, change in vision, double vision, discharge, dry eyes, bulging eyes, floaters, eye pain, light sensitivity, spots in vision, tunnel vision, other or visual disturbances ENT ENT: Positive for nasal congestion and nasal discharge; no ear pain, ear discharge, ear pressure, hearing loss, tinnitus, dizziness/vertigo, balance problems, nosebleed/epistaxis, nasal obstruction, nose pain, sinus pressure, sinus pain, post nasal drip, facial pain, dental pain, dry mouth, bad breath, hoarseness, mouth lesions, mouth pain, sore throat, abnormal hearing, headache(s), lip swelling, tongue swelling, throat swelling, difficulty swallowing, neck pain or other Resp Respiratory: Positive for cough; no change in phlegm color, chest congestion, excessive phlegm production, hemoptysis, pain on inspiration, shortness of breath, pain with cough, stridor, other, wheezing or snoring Cardio Cardiology: No chest pain with exertion, leg pain with exertion, shortness of breath, generalized swelling, irregular heart rhythm, orthopnea, radiating jaw, neck or arm pain, fast heart rate, slow heart rate, palpitations, other, chest pain at rest, dyspnea on exertion, lightheadedness or excessive sweating Gastro GI: No abdominal pain, belching, bloating, change in bowel habits, change in stool character, coffee ground emesis, constipation, cramping, diarrhea, heartburn, feeling full early, excessive flatus, incontinent of stools, Vomiting blood/hematemesis, blood in stool, loose stools, Black,tarry stools, nausea/dyspepsia, pain with swallowing, vomiting, other or difficulty swallowing Genitourinary Male: No difficulty urinating, burning urination, painful urination, urinary incontinence, urinary frequency, urinary urgency, urinary hesitancy, urinary retention, blood in urine, Frequent nighttime urination/ nocturia, post void dribbling, suprapubic fullness, side pain, sexual problems, genital lesions, genital itching, erectile dysfunction, penile discharge, difficulty with ejaculations, blood in semen, scrotal swelling, testicle lump, testicle pain or other Musc Musculoskeletal: No joint pain, back pain, deformity, joint swelling, limited range of motion, loss of height, muscle cramps, muscle weakness, decreased muscle mass, radiating pain into limb, stiffness, other, abnormal walking, numbness, tingling, body aches or neck pain Skin Skin: No acne, hair loss, change in hair, nail changes, boil, change in skin color, dry skin, redness, excessive hair growth, yellowing of the skin, lesions, rash, skin pain, skin ulcer, sores, skin swelling, wounds, other or itching Breast Breast: No other Neuro Neurology: No visual disturbances, abnormal walking, numbness, tingling, frequent falls, weakness, abnormal hearing or headache(s) Psych Psychiatric: No abnormal sleep pattern, No change in appetite Endo Endocrine: No fatigue, other or excessive sweating Aller/Imm Allergy/Immunologic: No wheezing, itchy eyes, lip swelling, tongue swelling or throat swelling Assessment AND Plan Problems 1. Controlled type 2 diabetes mellitus without complication, with long-term current use of insulin E11.9 Plan BP controlled and in range. On statin On artemio inhibitor On asa Having some issues with low BG after breakfast. Will trial a half unit insulin pen and if helps will switch his RX. We discussed need to monitor closely as winter arrives as he may need to resume slightly higher dose of basal insulin. Had URI for a week or so and also had week or so of sciatica whic limited his activity. 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 Orders Orders: Plan Detail Additional Comments 1. Please schedule follow up in 3 months. 2. Lab work one week before appointment. 3. Discussed importance of regular exercise and recommend starting or continuing a regular exercise program for good health. 4. The patient was encouraged to lose weight for good health 5. The importance of monitoring blood sugar regularly was reviewed. 6. The importance of monitoring the HBA1c level regularly was reviewed. 7. The importance of prper foot care and regularly checking feet to prevent sores and loss of limbs was reviewed. 8. The importance of keeping BP at or below 130/80 to prevent stroke, heart attacks, kidney failure, blindness was reviewed. Spent approximately 30 minutes with patient with over 50% of time spent in discussion and counseling regarding medication adjustment, symptoms and treatment of hypoglycemia, diet adherence, and checking BG before driving. 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 [place], [place], [address] COMPREHENSIVE METABOLIC Collected: 03/28/2018 Status: F Source: [place] 7:01 AM [facility] REPOSITORY TYPE CODE TESTS RESULT OUT OF RANGE REFERENCE UNITS LAB L501.0100 74-106 mg/dL Low GLU 62 Result Comment: Please note revised GLUCOSE reference range effective 2017. LAB L501.1000 7-18 mg/dL Normal BUN 12 LAB L501.1100 0.70-1.30 mg/dL Normal CREAT,SERUM 0.92 Result Comment: The validity of the calculated GFR AND GFRAA in patients over 70 years has not been determined. Clinical correlation is essential. LAB L501.1110 >60 mL/min Normal EST GFR 85 Result Comment: Non- GFR Calc LAB L501.1115 >60 mL/min Normal EST GFR - AA 103 Result Comment: GFR Calc LAB L501.1300 10-20 RATIO Normal BUN/CRE 13.0 LAB L501.1500 6.4-8.2 g/dL T Normal PROT 7.0 LAB L501.1800 3.2-5.0 g/dL Normal ALB 3.5 LAB L501.1950 2.2-4.2 g/dL Normal GLOB 3.5 LAB L501.2000 0.9-2.4 RATIO Normal A/G 1.0 LAB L501.2200 8.5-10.1 mg/dL CA Normal 8.8 LAB L501.4100 15-37 U/L Normal AST 17 LAB L501.4305 45-117 U/L Normal ALK P 82 LAB L501.4405 16-61 U/L Normal ALT 24 LAB L501.4600 0.20-1.00 mg/dL T Normal BILI 0.60 LAB L501.5300 136-145 mmol/L NA Normal 140 LAB L501.5600 3.5-5.1 mmol/L K Normal 3.9 LAB L501.5900 98-107 mmol/L CL Normal 105 LAB L501.6100 21.0-32.0 mmol/L Normal CO2 30.0 LAB L501.6200 5-15 Normal GAP 5 Performed By: #### L500.4050, L501.9520 #### [facility] [address] [place], [address] THYROID STIM HORMONE Collected: 03/28/2018 Status: F Source: [place] (TSH) 7:01 AM [facility] REPOSITORY TYPE CODE TESTS RESULT OUT OF RANGE REFERENCE UNITS LAB L501.9520 0.358-3.74 uIU/mL High TSH 6.12 Performed By: #### L500.4050, L501.9520 #### [facility] [address] [place], [address] PROGRESS Observed: 02/14/2018 Status: COMPLETED Source: [place] 9:46 AM [facility] REPOSITORY O ID: [id number] Author: Naldo Santillan III Service: (none) Author Type: Physician Type: Progress Notes Filed: 02/14/2018 12:22 PM Note Text: SUBJECTIVE: This is a 73 year old male that is here today for 1. depression--improved even though he is taking only zoloft 25mg daily 2. fell 2 wks ago down his outside steps, causing fx R ribs. Using tramadol BID and ibuprofen. Still some mild level of pain, but not disabling. XRay report reviewed--non-displaced fx R 8th rib. 3. diabetes mellitus II--home glu. well controlled unless he does not follow diet. HbA1c 6.9 recently. PEMA Monsalve. PAST MEDICAL HISTORY Diagnosis Date - Backache, unspecified - Colon cancer screening 11/24/2017 Gglxpend-vodfvcfy-gdtu check -3 years-11/2020 - Diabetes mellitus type 2, controlled, without complications (HCC) 05/01/2015 - Hyperlipidemia LDL goal < 100 02/01/2013 - Hyperplasia of prostate - Other and unspecified hyperlipidemia - Plantar fasciitis 10/04/2011 - Psoriasis and similar disorders - Type II or unspecified type diabetes mellitus without mention of complication, not stated as uncontrolled - Vitamin D deficiency 10/22/2013 - Vitiligo Current Outpatient Prescriptions on File Prior to Visit: lovastatin (MEVACOR) 20 mg tablet Take 1 tablet by mouth once daily. FOR CHOLESTEROL insulin aspart U-100 (NOVOLOG FLEXPEN U-100 INSULIN) 100 unit/mL inpn Inject 5 units subcutaneously before meals and at bedtime. sertraline (ZOLOFT) 50 mg tablet Take 1 tablet by mouth once daily. LANTUS SOLOSTAR U-100 INSULIN 100 unit/mL (3 mL) inpn INJECT 15 UNITS SUBCUTANEOUSLY DAILY lisinopril (ZESTRIL, PRINIVIL) 5 mg tablet TAKE ONE TABLET BY MOUTH EVERY DAY metFORMIN ER (GLUCOPHAGE XR) 500 mg 24 hr tablet Take 2 tablets by mouth daily with breakfast. blood sugar diagnostic (ACCU-CHEK PENNY PLUS TEST STRP) test strip Test blood sugar(s) 3-4 times daily. Dx: Type 2 DM - Controlled E11.9 Insulin: Yes EASY TOUCH 31 gauge x 1/4 ndle Use as directed to inject insulins magnesium oxide (MAG-OX) 400 mg tablet Take 1 tablet by mouth once daily. Lancets (ACCU-CHEK MULTICLIX LANCET) lancets Use as instructed 4 times/day Dx 250.00 on insulin Cholecalciferol, Vitamin D3, 1,000 unit cap Take 1 capsule by mouth once daily. glucagon, human recombinant, (GLUCAGON EMERGENCY) 1 mg injection Inject 1 mg intramuscularly as directed. INJECT FOR INSULIN SHOCK COMPOUNDED PRESCRIPTION accu-check avia test strips. check BS 3 times daily aspirin(ECOTRIN LOW STRENGTH 81 MG TAB) Take one(1) tablet daily. SAW PALMETTO 7.5 MG-40 MG-160 MG ORAL CAP Take one(1) tablet daily. ONE DAILY MULTI-VITAMIN ORAL TAB Take one(1) tablet daily. No current facility-administered medications on file prior to visit. FAMILY HISTORY Problem Relation Age of Onset - Cancer Father prostate - Breast Cancer Sister - Diabetes Daughter - Ischemic Heart Disease Mother [place] - Heart Mother - Hypertension Mother Social History Substance Use Topics - Smoking status: Never Smoker - Smokeless tobacco: Never Used - Alcohol use No BP 103/57 Pulse (!) 59 Resp 16 Wt 73 kg (161 lb) BMI 23.85 kg/m? . OBJECTIVE: APPEARANCE Well appearing, alert, in no acute distress, well-hydrated, well nourished. LUNG clear to auscultation, focal tenderness R lat chest wall Appearance: well dressed well groomed, cooperative and pleasant Behavior: good eye contact Speech: fluent and coherent Mood: euthymic Affect: appropriate Perceptions: none Thought process: goal directed Thought Content: normal Intelligence level: normal Insight: good Judgment: good ASSESSMENT: depression--well controlled fx R ribs--healing diabetes mellitus II well controlled PLAN: continue ibuprofen as needed for pain may use tramadol 50mg up to twice/day as needed for severe pain--use sparingly as needed continue zoloft 50mg daily same other medications and do interesting, fun activities Naldo Santillan III MD PDMP website checked and validated. All prescriptions have been APPROPRIATELY filled. No suspicious activity was identified. 02/14/2018 by MONAE Bragg MD, III MD CNOV Observed: 02/14/2018 Status: COMPLETED Source: [place] 9:20 AM [facility] REPOSITORY [facility] WESLEY BARFIELD ([id number]) 1945 M Date Time Provider Department 02/14/18 9:20 AM NALDO SANTILLAN IIIWS During your visit today, we recorded the following information about you: Pulse Respiration Blood pressure Weight 59/minute 16/minute 103/57 73 kg Naldo Santillan III MD 02/14/2018 12:22 PM Signed SUBJECTIVE: This is a 73 year old male that is here today for 1. depression--improved even though he is taking only zoloft 25mg daily 2. fell 2 wks ago down his outside steps, causing fx R ribs. Using tramadol BID and ibuprofen. Still some mild level of pain, but not disabling. XRay report reviewed--non-displaced fx R 8th rib. 3. diabetes mellitus II--home glu. well controlled unless he does not follow diet. HbA1c 6.9 recently. PEMA Monsalve. PAST MEDICAL HISTORY Diagnosis Date - Backache, unspecified - Colon cancer screening 11/24/2017 Sftpsxux-siutngvl-cjlt check -3 years-11/2020 - Diabetes mellitus type 2, controlled, without complications (HCC) 05/01/2015 - Hyperlipidemia LDL goal < 100 02/01/2013 - Hyperplasia of prostate - Other and unspecified hyperlipidemia - Plantar fasciitis 10/04/2011 - Psoriasis and similar disorders - Type II or unspecified type diabetes mellitus without mention of complication, not stated as uncontrolled - Vitamin D deficiency 10/22/2013 - Vitiligo Current Outpatient Prescriptions on File Prior to Visit: lovastatin (MEVACOR) 20 mg tablet Take 1 tablet by mouth once daily. FOR CHOLESTEROL insulin aspart U-100 (NOVOLOG FLEXPEN U-100 INSULIN) 100 unit/mL inpn Inject 5 units subcutaneously before meals and at bedtime. sertraline (ZOLOFT) 50 mg tablet Take 1 tablet by mouth once daily. LANTUS SOLOSTAR U-100 INSULIN 100 unit/mL (3 mL) inpn INJECT 15 UNITS SUBCUTANEOUSLY DAILY lisinopril (ZESTRIL, PRINIVIL) 5 mg tablet TAKE ONE TABLET BY MOUTH EVERY DAY metFORMIN ER (GLUCOPHAGE XR) 500 mg 24 hr tablet Take 2 tablets by mouth daily with breakfast. blood sugar diagnostic (ACCU-CHEK PENNY PLUS TEST STRP) test strip Test blood sugar(s) 3-4 times daily. Dx: Type 2 DM - Controlled E11.9 Insulin: Yes EASY TOUCH 31 gauge x 1/4 ndle Use as directed to inject insulins magnesium oxide (MAG-OX) 400 mg tablet Take 1 tablet by mouth once daily. Lancets (ACCU-CHEK MULTICLIX LANCET) lancets Use as instructed 4 times/day Dx 250.00 on insulin Cholecalciferol, Vitamin D3, 1,000 unit cap Take 1 capsule by mouth once daily. glucagon, human recombinant, (GLUCAGON EMERGENCY) 1 mg injection Inject 1 mg intramuscularly as directed. INJECT FOR INSULIN SHOCK COMPOUNDED PRESCRIPTION accu-check avia test strips. check BS 3 times daily aspirin(ECOTRIN LOW STRENGTH 81 MG TAB) Take one(1) tablet daily. SAW PALMETTO 7.5 MG-40 MG-160 MG ORAL CAP Take one(1) tablet daily. ONE DAILY MULTI-VITAMIN ORAL TAB Take one(1) tablet daily. No current facility-administered medications on file prior to visit. FAMILY HISTORY Problem Relation Age of Onset - Cancer Father prostate - Breast Cancer Sister - Diabetes Daughter - Ischemic Heart Disease Mother [place] - Heart Mother - Hypertension Mother Social History Substance Use Topics - Smoking status: Never Smoker - Smokeless tobacco: Never Used - Alcohol use No BP 103/57 Pulse (!) 59 Resp 16 Wt 73 kg (161 lb) BMI 23.85 kg/m? . OBJECTIVE: APPEARANCE Well appearing, alert, in no acute distress, well- hydrated, well nourished. LUNG clear to auscultation, focal tenderness R lat chest wall Appearance: well dressed well groomed, cooperative and pleasant Behavior: good eye contact Speech: fluent and coherent Mood: euthymic Affect: appropriate Perceptions: none Thought process: goal directed Thought Content: normal Intelligence level: normal Insight: good Judgment: good ASSESSMENT: depression--well controlled fx R ribs--healing diabetes mellitus II well controlled PLAN: continue ibuprofen as needed for pain may use tramadol 50mg up to twice/day as needed for severe pain--use sparingly as needed continue zoloft 50mg daily same other medications and do interesting, fun activities Naldo Santillan III MD PDMP website checked and validated. All prescriptions have been APPROPRIATELY filled. No suspicious activity was identified. 02/14/2018 by MONAE Bragg MD, III MD Frank A Cebul, III MD 02/14/2018 10:02 AM Signed PLAN: continue ibuprofen as needed for pain may use tramadol 50mg up to twice/day as needed for severe pain--use sparingly as needed continue zoloft 50mg daily same other medications and do interesting, fun activities Naldo Santillan III MD Referring Provider: NALDO SANTILLAN III [[id number]] Allergies As of Date: 02/14/2018 Noted Allergy Reaction shrimp [Other] 03/18/2005 10 - Anaphylaxis Date Reviewed: 02/14/2018 Reviewed by: Jessica ([facility]) MAGGI Mackey - Fully Assessed Reason for Visit: 3 month check up [Other] broken rib [Other] Cmt: right side Primary Visit Diagnosis:Adjustment disorder with mixed anxiety and depressed mood [F43.23] Other Visit Diagnoses:Closed fracture of one rib of right side with routine healing, subsequent encounter [S22.31XD] Anxiety and depression [F41.9, F32.9] Controlled type 2 diabetes mellitus without complication, with long-term current use of insulin (HCC) [E11.9, Z79.4] Order(s):traMADol (ULTRAM) 50 mg tabletTake 1 tablet by mouth every 6 hours as needed for Pain for up to 7 days.Disp: 28 tabletRfl: 0 sertraline (ZOLOFT) 50 mg tabletTake 0.5 tablets by mouth once daily.Disp: 30 tabletRfl: 5 Prescriptions as of 02/14/2018 Sig: SERTRALINE 50 MG TABLET Take 0.5 tablets by mouth onc* LOVASTATIN 20 MG TABLET Take 1 tablet by mouth once d* INSULIN ASPART U-100 100 UNI* Inject 5 units subcutaneously* LANTUS SOLOSTAR U-100 INSULIN* INJECT 15 UNITS SUBCUTANEOUSL* LISINOPRIL 5 MG TABLET TAKE ONE TABLET BY MOUTH EVER* METFORMIN ER 500 MG TABLET,EX* Take 2 tablets by mouth daily* BLOOD SUGAR DIAGNOSTIC STRIPS Test blood sugar(s) 3- 4 times* EASY TOUCH 31 GAUGE X 1/4 NE* Use as directed to inject ins* MAGNESIUM OXIDE 400 MG TABLET Take 1 tablet by mouth once d* LANCETS Use as instructed 4 times/day* CHOLECALCIFEROL (VITAMIN D3) * Take 1 capsule by mouth once * GLUCAGON (HUMAN RECOMBINANT) * Inject 1 mg intramuscularly a* COMPOUNDED PRESCRIPTION accu-check avia test strips. * ECOTRIN LOW STRENGTH 81 MG TA* Take one(1) tablet daily. SAW PALMETTO COMPLEX (PUMPKIN* Take one(1) tablet daily. ONE DAILY MULTI-VITAMIN TABLET Take one(1) tablet daily. TRAMADOL 50 MG TABLET Take 1 tablet by mouth every * Problem List As Of Date 02/14/2018 Noted Resolved Backache, unspecified [M54.9] 10/15/2013 VITILIGO [L80] Pain in limb [M79.609] INVALID FOR*10/15/2013 Loss of weight [R63.4] INVALID FOR*10/15/2013 Concussion, unspecified [S06.0X9A] INVALID FOR*10/15/2013 Cellulitis and abscess of unspecified site [L03*INVALID FOR*10/15/2013 Psoriasis [L40.9] INVALID FOR* Plantar fasciitis [M72.2] INVALID FOR*10/15/2013 Adjustment disorder [F43.20] INVALID FOR* Marital conflict [Z63.0] INVALID FOR* Hyperlipidemia with target LDL less than 100 [E*INVALID FOR* Vitamin D deficiency [E55.9] INVALID FOR*11/14/2017 Diabetes mellitus type 2, controlled, without c*INVALID FOR* Anxiety and depression [F41.9, F32.9] INVALID FOR* Right lumbar radiculopathy [M54.16] INVALID FOR*03/31/2016 Anemia [D64.9] INVALID FOR*12/13/2016 Chronic cough [R05] INVALID FOR* Other instructions from your clinician: PLAN: continue ibuprofen as needed for pain may use tramadol 50mg up to twice/day as needed for severe pain--use sparingly as needed continue zoloft 50mg daily same other medications and do interesting, fun activities Naldo Santillan III MD Prescriptions ordered this encounter Disp Refills Start End TRAMADOL 50 MG TABLET 28 t* 0 02/14/2018 02/21/2018 Class: Print RX Route: ORAL Sig: Take 1 tablet by mouth every 6 hours as needed for Pain for up to 7 days. SERTRALINE 50 MG TABLET 30 t* 5 02/14/2018 Route: ORAL Sig: Take 0.5 tablets by mouth once daily. Medications Discontinued During This Encounter tramadol HCl (TRAMADOL ORAL) 02/14/2018 Class: Historical Med Route: ORAL Sig: Take by mouth as needed. Disc: Erroneous entry traMADol (ULTRAM) 50 mg tablet 28 t* 0 01/31/2018 02/14/2018 Class: Print RX Route: ORAL Sig: Take 1 tablet by mouth every 6 hours as needed for Pain for up to 7 days. Disc: Reason for discontinue is not on file. sertraline (ZOLOFT) 50 mg tablet 30 t* 2 12/06/2017 02/14/2018 Route: ORAL Sig: Take 1 tablet by mouth once daily. Disc: Reason for discontinue is not on file. Encounter Status:Closed by NALDO SANTILLAN III, MD on 02/14/18 PROGRESS Observed: 01/31/2018 Status: COMPLETED Source: [place] 4:09 PM [facility] REPOSITORY HNO ID: [id number] Author: Naldo Santillan III Service: (none) Author Type: Physician Type: Progress Notes Filed: 01/31/2018 6:53 PM Note Text: SUBJECTIVE: This is a 73 year old male that is here today for ER Follow Up. 01/27/18 1. fell onto his driveway and sustained fx R eighth rib. ER records reviewed. States norco not working well per pt. Episodic pain, worse when getting out of bed. 2. depression-- on zoloft PAST MEDICAL HISTORY Diagnosis Date - Backache, unspecified - Colon cancer screening 11/24/2017 Sjartwls-mdcysrua-bluv check -3 years-11/2020 - Diabetes mellitus type 2, controlled, without complications (HCC) 05/01/2015 - Hyperlipidemia LDL goal < 100 02/01/2013 - Hyperplasia of prostate - Other and unspecified hyperlipidemia - Plantar fasciitis 10/04/2011 - Psoriasis and similar disorders - Type II or unspecified type diabetes mellitus without mention of complication, not stated as uncontrolled - Vitamin D deficiency 10/22/2013 - Vitiligo Current Outpatient Prescriptions on File Prior to Visit: lovastatin (MEVACOR) 20 mg tablet Take 1 tablet by mouth once daily. FOR CHOLESTEROL insulin aspart U-100 (NOVOLOG FLEXPEN U-100 INSULIN) 100 unit/mL inpn Inject 5 units subcutaneously before meals and at bedtime. sertraline (ZOLOFT) 50 mg tablet Take 1 tablet by mouth once daily. LANTUS SOLOSTAR U-100 INSULIN 100 unit/mL (3 mL) inpn INJECT 15 UNITS SUBCUTANEOUSLY DAILY lisinopril (ZESTRIL, PRINIVIL) 5 mg tablet TAKE ONE TABLET BY MOUTH EVERY DAY metFORMIN ER (GLUCOPHAGE XR) 500 mg 24 hr tablet Take 2 tablets by mouth daily with breakfast. blood sugar diagnostic (ACCU-CHEK PENNY PLUS TEST STRP) test strip Test blood sugar(s) 3-4 times daily. Dx: Type 2 DM - Controlled E11.9 Insulin: Yes EASY TOUCH 31 gauge x 1/4 ndle Use as directed to inject insulins naproxen (NAPROSYN) 500 mg tablet Take 1 tablet by mouth twice daily as needed (for pain/inflammation). Take with food. magnesium oxide (MAG-OX) 400 mg tablet Take 1 tablet by mouth once daily. Cholecalciferol, Vitamin D3, 1,000 unit cap Take 1 capsule by mouth once daily. glucagon, human recombinant, (GLUCAGON EMERGENCY) 1 mg injection Inject 1 mg intramuscularly as directed. INJECT FOR INSULIN SHOCK COMPOUNDED PRESCRIPTION accu-check avia test strips. check BS 3 times daily aspirin(ECOTRIN LOW STRENGTH 81 MG TAB) Take one(1) tablet daily. SAW PALMETTO 7.5 MG-40 MG-160 MG ORAL CAP Take one(1) tablet daily. ONE DAILY MULTI-VITAMIN ORAL TAB Take one(1) tablet daily. cyclobenzaprine (FLEXERIL) 10 mg tablet Take 1 tablet by mouth three times daily as needed for Muscle Spasm. Lancets (ACCU-CHEK MULTICLIX LANCET) lancets Use as instructed 4 times/day Dx 250.00 on insulin No current facility-administered medications on file prior to visit. FAMILY HISTORY Problem Relation Age of Onset - Cancer Father prostate - Breast Cancer Sister - Diabetes Daughter - Ischemic Heart Disease Mother [place] - Heart Mother - Hypertension Mother Social History Substance Use Topics - Smoking status: Never Smoker - Smokeless tobacco: Never Used - Alcohol use No BP 120/68 Pulse 60 Resp 14 Wt 72.1 kg (159 lb) BMI 23.55 kg/m? . OBJECTIVE: APPEARANCE Well appearing, alert, in no acute distress, well-hydrated, well nourished. LUNG clear to auscultation, localized tenderness R post-lat rib Appearance: well dressed well groomed, cooperative and pleasant Behavior: good eye contact Speech: fluent and coherent Mood: euthymic Affect: appropriate Perceptions: none Thought process: goal directed Thought Content: preoccupations with pain R rib Intelligence level: normal Insight: fair Judgment: fair ASSESSMENT: fx R 8th rib, subsequent encounter depression--stable, improved PLAN: splint chest wall as needed daily stool softener ibuprofen 400mg every 6 hrs as needed for pain may add tylenol 1000mg three times/day as needed for pain tramadol 50mg every 6 hrs as needed for severe pain continue zoloft Naldo Santillan III MD PDMP website checked and validated. All prescriptions have been APPROPRIATELY filled. No suspicious activity was identified. 01/31/2018 by MONAE Bragg MD, III MD CNOV Observed: 01/31/2018 Status: COMPLETED Source: [place] 3:40 PM [facility] REPOSITORY Office Visit (FAMPWS) WESLEY BARFIELD ([id number]) 1945 M Date Time Provider Department 01/31/18 3:40 PM NALDO SANTILLAN III During your visit today, we recorded the following information about you: Pulse Respiration Blood pressure Weight 60/minute 14/minute 120/68 72.1 kg Naldo Santillan III MD 01/31/2018 6:53 PM Signed SUBJECTIVE: This is a 73 year old male that is here today for ER Follow Up. 01/27/18 1. fell onto his driveway and sustained fx R eighth rib. ER records reviewed. States norco not working well per pt. Episodic pain, worse when getting out of bed. 2. depression-- on zoloft PAST MEDICAL HISTORY Diagnosis Date - Backache, unspecified - Colon cancer screening 11/24/2017 Qmuznbhd-znhetuhb-tlef check -3 years-11/2020 - Diabetes mellitus type 2, controlled, without complications (HCC) 05/01/2015 - Hyperlipidemia LDL goal < 100 02/01/2013 - Hyperplasia of prostate - Other and unspecified hyperlipidemia - Plantar fasciitis 10/04/2011 - Psoriasis and similar disorders - Type II or unspecified type diabetes mellitus without mention of complication, not stated as uncontrolled - Vitamin D deficiency 10/22/2013 - Vitiligo Current Outpatient Prescriptions on File Prior to Visit: lovastatin (MEVACOR) 20 mg tablet Take 1 tablet by mouth once daily. FOR CHOLESTEROL insulin aspart U-100 (NOVOLOG FLEXPEN U-100 INSULIN) 100 unit/mL inpn Inject 5 units subcutaneously before meals and at bedtime. sertraline (ZOLOFT) 50 mg tablet Take 1 tablet by mouth once daily. LANTUS SOLOSTAR U-100 INSULIN 100 unit/mL (3 mL) inpn INJECT 15 UNITS SUBCUTANEOUSLY DAILY lisinopril (ZESTRIL, PRINIVIL) 5 mg tablet TAKE ONE TABLET BY MOUTH EVERY DAY metFORMIN ER (GLUCOPHAGE XR) 500 mg 24 hr tablet Take 2 tablets by mouth daily with breakfast. blood sugar diagnostic (ACCU-CHEK PENNY PLUS TEST STRP) test strip Test blood sugar(s) 3-4 times daily. Dx: Type 2 DM - Controlled E11.9 Insulin: Yes EASY TOUCH 31 gauge x 1/4 ndle Use as directed to inject insulins naproxen (NAPROSYN) 500 mg tablet Take 1 tablet by mouth twice daily as needed (for pain/inflammation). Take with food. magnesium oxide (MAG-OX) 400 mg tablet Take 1 tablet by mouth once daily. Cholecalciferol, Vitamin D3, 1,000 unit cap Take 1 capsule by mouth once daily. glucagon, human recombinant, (GLUCAGON EMERGENCY) 1 mg injection Inject 1 mg intramuscularly as directed. INJECT FOR INSULIN SHOCK COMPOUNDED PRESCRIPTION accu-check avia test strips. check BS 3 times daily aspirin(ECOTRIN LOW STRENGTH 81 MG TAB) Take one(1) tablet daily. SAW PALMETTO 7.5 MG-40 MG-160 MG ORAL CAP Take one(1) tablet daily. ONE DAILY MULTI-VITAMIN ORAL TAB Take one(1) tablet daily. cyclobenzaprine (FLEXERIL) 10 mg tablet Take 1 tablet by mouth three times daily as needed for Muscle Spasm. Lancets (ACCU-CHEK MULTICLIX LANCET) lancets Use as instructed 4 times/day Dx 250.00 on insulin No current facility-administered medications on file prior to visit. FAMILY HISTORY Problem Relation Age of Onset - Cancer Father prostate - Breast Cancer Sister - Diabetes Daughter - Ischemic Heart Disease Mother [place] - Heart Mother - Hypertension Mother Social History Substance Use Topics - Smoking status: Never Smoker - Smokeless tobacco: Never Used - Alcohol use No BP 120/68 Pulse 60 Resp 14 Wt 72.1 kg (159 lb) BMI 23.55 kg/m? . OBJECTIVE: APPEARANCE Well appearing, alert, in no acute distress, well- hydrated, well nourished. LUNG clear to auscultation, localized tenderness R post-lat rib Appearance: well dressed well groomed, cooperative and pleasant Behavior: good eye contact Speech: fluent and coherent Mood: euthymic Affect: appropriate Perceptions: none Thought process: goal directed Thought Content: preoccupations with pain R rib Intelligence level: normal Insight: fair Judgment: fair ASSESSMENT: fx R 8th rib, subsequent encounter depression--stable, improved PLAN: splint chest wall as needed daily stool softener ibuprofen 400mg every 6 hrs as needed for pain may add tylenol 1000mg three times/day as needed for pain tramadol 50mg every 6 hrs as needed for severe pain continue zoloft Naldo Santillan III MD PDMP website checked and validated. All prescriptions have been APPROPRIATELY filled. No suspicious activity was identified. 01/31/2018 by MONAE Bragg MD, III MD Frank A Cebul III MD 01/31/2018 4:33 PM Signed PLAN: splint chest wall as needed daily stool softener ibuprofen 400mg every 6 hrs as needed for pain may add tylenol 1000mg three times/day as needed for pain tramadol 50mg every 6 hrs as needed for severe pain continue maria elenat Naldo Santillan III MD Referring Provider: SELF [200] Allergies As of Date: 01/31/2018 Noted Allergy Reaction shrimp [Other] 03/18/2005 10 - Anaphylaxis Date Reviewed: 01/31/2018 Reviewed by: Ynes Funes Ma - Fully Assessed Reason for Visit: ED Follow-up [821] Primary Visit Diagnosis:Closed fracture of one rib of right side with routine healing, subsequent encounter [S22.31XD] Other Visit Diagnosis:Anxiety and depression [F41.9, F32.9] Order(s):traMADol (ULTRAM) 50 mg tabletTake 1 tablet by mouth every 6 hours as needed for Pain for up to 7 days.Disp: 28 tabletRfl: 0 Prescriptions as of 01/31/2018 Sig: LOVASTATIN 20 MG TABLET Take 1 tablet by mouth once d* INSULIN ASPART U-100 100 UNI* Inject 5 units subcutaneously* SERTRALINE 50 MG TABLET Take 1 tablet by mouth once d* LANTUS SOLOSTAR U-100 INSULIN* INJECT 15 UNITS SUBCUTANEOUSL* LISINOPRIL 5 MG TABLET TAKE ONE TABLET BY MOUTH EVER* METFORMIN ER 500 MG TABLET,EX* Take 2 tablets by mouth daily* BLOOD SUGAR DIAGNOSTIC STRIPS Test blood sugar(s) 3- 4 times* EASY TOUCH 31 GAUGE X 1/4 NE* Use as directed to inject ins* MAGNESIUM OXIDE 400 MG TABLET Take 1 tablet by mouth once d* CHOLECALCIFEROL (VITAMIN D3) * Take 1 capsule by mouth once * GLUCAGON (HUMAN RECOMBINANT) * Inject 1 mg intramuscularly a* COMPOUNDED PRESCRIPTION accu-check avia test strips. * ECOTRIN LOW STRENGTH 81 MG TA* Take one(1) tablet daily. SAW PALMETTO COMPLEX (PUMPKIN* Take one(1) tablet daily. ONE DAILY MULTI-VITAMIN TABLET Take one(1) tablet daily. TRAMADOL 50 MG TABLET Take 1 tablet by mouth every * LANCETS Use as instructed 4 times/day* Problem List As Of Date 01/31/2018 Noted Resolved Backache, unspecified [M54.9] 10/15/2013 VITILIGO [L80] Pain in limb [M79.609] INVALID FOR*10/15/2013 Loss of weight [R63.4] INVALID FOR*10/15/2013 Concussion, unspecified [S06.0X9A] INVALID FOR*10/15/2013 Cellulitis and abscess of unspecified site [L03*INVALID FOR*10/15/2013 Psoriasis [L40.9] INVALID FOR* Plantar fasciitis [M72.2] INVALID FOR*10/15/2013 Adjustment disorder [F43.20] INVALID FOR* Marital conflict [Z63.0] INVALID FOR* Hyperlipidemia with target LDL less than 100 [E*INVALID FOR* Vitamin D deficiency [E55.9] INVALID FOR*11/14/2017 Diabetes mellitus type 2, controlled, without c*INVALID FOR* Anxiety and depression [F41.9, F32.9] INVALID FOR* Right lumbar radiculopathy [M54.16] INVALID FOR*03/31/2016 Anemia [D64.9] INVALID FOR*12/13/2016 Chronic cough [R05] INVALID FOR* Other instructions from your clinician: PLAN: splint chest wall as needed daily stool softener ibuprofen 400mg every 6 hrs as needed for pain may add tylenol 1000mg three times/day as needed for pain tramadol 50mg every 6 hrs as needed for severe pain continue sherif Santillan III Prescriptions ordered this encounter Disp Refills Start End HYDROCODONE 5 MG-ACETAMINOPHEN 325 M* 0 01/31/2018 01/31/2018 Class: Med Update Route: ORAL Sig: Take 1 tablet by mouth every 6 hours as needed for Pain for up to 7 days. Earliest Fill Date: 01/31/18 Disc: Clinical Decision TRAMADOL 50 MG TABLET 28 t* 0 01/31/2018 02/07/2018 Class: Print RX Route: ORAL Sig: Take 1 tablet by mouth every 6 hours as needed for Pain for up to 7 days. Medications Discontinued During This Encounter cyclobenzaprine (FLEXERIL) 10 mg tab* 30 t* 1 12/28/2016 01/31/2018 Route: ORAL Sig: Take 1 tablet by mouth three times daily as needed for Muscle Spasm. Disc: Course of therapy completed naproxen (NAPROSYN) 500 mg tablet 30 t* 2 12/28/2016 01/31/2018 Route: ORAL Sig: Take 1 tablet by mouth twice daily as needed (for pain/inflammation). Take with food. Disc: Course of therapy completed HYDROcodone-acetaminophen (NORCO) 5-* 0 01/31/2018 01/31/2018 Class: Med Update Route: ORAL Sig: Take 1 tablet by mouth every 6 hours as needed for Pain for up to 7 days. Earliest Fill Date: 01/31/18 Disc: Clinical Decision Encounter Status:Closed by NALDO SANTILLAN III, MD on 01/31/18 EMERGENCY DEPARTMENT Observed: 01/27/2018 Status: F Source: [place] SUMMARY 7:40 AM [facility] REPOSITORY [facility] Medical Records Department [address] [place] [address] Emergency Department Summary 01/27/18 0621 MR#: [id number] Acct: [id number] Name: WESLEY BARFIELD Rep #: [id number] : 1945 73 From: Esau Quiroz MD PCP: Naldo Santillan III, MD Status: REG ER History of Present Illness Chief Complaint: Fall Informant: Patient Onset: Yesterday Context: Sudden Onset Timing: Continuous Quality: ache/sore Current Severity: Moderate Maximum Severity: Severe Worsened by: movement, especially w/ sitting up. mildly worse w/ deep inspiration Relieved by: remaining still Associated Symptoms: no other injuries except abrasion to right forearm. no dyspnea. Narrative: Patient tripped or slipped, falling down 2 steps to concrete below at his home. Right on his right rib cage. This occurred last night, 10 or so hours prior to arrival in the ED. The pain has worsened overnight, and he states lying on his right side hurts the worse, as does sitting up actively. - Past Medical History (1) Diabetes mellitus type 2, controlled, without complications Status: Chronic Comment: Has been able to bring A1c from 7 range down to 6.6 without as many lows. However now that warmer weather is here he is having more low BG. I have ask him to take lantus down to 11-12 from his current dose of 13 as his low BG are related to long acting insulin. His meal coverage appears neutral. On asa On statin On artemio inhibitor; BP in range. Past Medical History - Allergies and Home Meds Allergies/Adverse Reactions: Allergies Antihistamines - Alkylamine Allergy (Verified 01/27/18 05:58) Other SHRIMP Allergy (Uncoded 01/27/18 05:58) Anaphylaxis Primary Care Physician: Naldo Santillan III, MD [Primary Care Provider] - 1 Week if not improving Lives: Spouse/ Significant Other Smoking Status: Never smoker Review of Systems All systems negative except as indicated Cardiovascular: Reports: Chest pain. Denies: Palpitations Respiratory: Denies: Dyspnea, Cough Gastrointestinal: Denies: Abdominal pain, Nausea, Vomiting Musculoskeletal: Reports: Back pain - Right ribs, mid back. Denies: Neck pain, Extremity Pain Skin: Reports: Abrasions Neurological: Denies: Headache, Weakness, Parasthesia Physical Exam Vital Signs/Narrative: Vital Signs 01/27/18 05:58 97.0 F L 66 16 114/63 100 Inital Vital Signs reviewed: Yes General: Well nourished, Well developed, - - Well-appearing in no acute distress Head: Normocephalic, Atraumatic Eyes: Perrl, EOMI Neck: Supple, Nontender Cardiovascular: Regular rate, Regular rhythm, No murmurs Respiratory: No distress, CTA bilaterally, Chest tenderness - Mostly at right rib #7 or 8, just below right breast. No crepitance or subcutaneous emphysema. No bruising or external evidence of trauma., - - Equal breath sounds bilaterally. No splinting with deep inspiration. Abdomen: Soft, Nontender, Nondistended, Normal bowel sounds Back: Normal Inspection, - - Mildly tender to palpation right mid back paraspinal area. Negative for: Spinal tenderness Extremities: Nontender, No edema, - - Full range of motion all 4 extremities including right upper extremity at the elbow Skin: Normal color, No rash, Trauma - Superficial abrasions right dorsal proximal forearm, just distal to olecranon process. No tenderness. No lacerations. Neurological: Alert, Oriented x3, Cranial nerves II-XII grossly intact, Normal Strength, Normal Sensation, Normal Gait Psychological: Normal affect Diagnostic/Tx/Re-eval Impressions Ribs w/Chest X-Ray 01/27/18 06:21 IMPRESSION: RIBS: A nondisplaced fracture of right rib 8 is suspected. CHEST: No acute pulmonary findings. Electronically Signed: Daniel Sparrow MD at 7:22 EDT Tel , Service support , 01/27/18 06:21 Ribs Uni Min 3V w/PA Chest [RAD] Stat - Medical Decision Making Patient declined analgesics. X-rays show nondisplaced fracture of the right eighth rib, consistent with where he is tender. No pneumothorax or signs of a pulmonary contusion. He is clinically and hemodynamically stable. He is agreeable to taking a prescription for [place] to use as needed, given appropriate discharge instructions and follow-up. ED Disposition - Plan for ED Patient: Disposition: Home or Assisted Living Chief Complaint: Fall Diagnosis: Right rib fracture Instructions: ED Fx Rib Prescriptions: Hydrocodone/Acetaminophen [[place] 5-325 Tablet] 1 - 2 ea PO 4X/DAY PRN PRN 3 Days #12 tab PRN Reason: Pain Referrals: Naldo Santillan III, MD [Primary Care Provider] - 1 Week if not improving What to do if you have Problems For any increased pain, shortness of breath, bleeding, nausea or vomiting, chest pain, or any unexpected problems, contact your Primary Care Provider. Call [facility] ([phone]) or report to the closest Emergency Room. Call 911 if necessary. 01/27/18 0740 <Electronically signed by Esau Quiroz MD> Date Esau Quiroz MD Cosigner Signature (If Indicated): Date CC: Naldo Santillan III, MD RIBS UNI MIN 3V Observed: 01/27/2018 Status: F Source: [place] W/PA CHEST 6:21 AM [facility] REPOSITORY [facility] Imaging Services [address] [place] [address] Ribs Uni Min 3V w/PA Chest MR#: [id number] Acct: [id number] Name: WESLEY BARFIELD Rep #: [id number] : 1945 M 73 From: Daniel Sparrow MD PCP: Naldo Santillan III, MD Status: REG ER Study: Ribs Uni Min 3V w/PA Chest Date of Exam: 01/27/18 Exam# [id number] Ordering Dr: Esau Quiroz MD STUDY: X-RAY - UNILATERAL RIBS ( RIGHT ) WITH CHEST REASON FOR EXAM: Male, 73 years old. Trauma TECHNIQUE - RIBS: 3 view(s) of the ribs. TECHNIQUE - CHEST: Single frontal view of the chest. COMPARISON: Chest 08/03/2014 FINDINGS - RIBS: A nondisplaced fracture of right rib 8 is suspected. FINDINGS - CHEST: The lungs are clear and expanded. There is no demonstrated pleural abnormality. Normal size heart. Normal mediastinum and lucila. Normal visualized pulmonary arteries. Normal visualized aortic arch and descending thoracic aorta. Normal visualized thoracic spine. There is no demonstrated abnormality of the visualized soft tissue structures of the upper abdomen. RAD/Ribs Uni Min 3V w/PA Chest IMPRESSION: RIBS: A nondisplaced fracture of right rib 8 is suspected. CHEST: No acute pulmonary findings. Electronically Signed: Daniel Sparrow MD at 7:22 EDT Tel , Service support , CC: ESAU QUIROZ MD; Naldo Santillan III, MD Elevator Builder: Signed ENDOCRINOLOGY VISIT Observed: 01/08/2018 Status: F Source: [place] REPORT 2:41 PM [facility] REPOSITORY [facility] [address] [place] [address]. [address] [place] [address] OFFICE VISIT Date of Service: 12/27/17 MR#: [id number] Acct: [id number] Name: WESLEY BARFIELD Rep #: [id number] : 1945 Provider: Migdalia Monsalve NP Age/Sex: 72/M Location: [facility] Status: Signed HPI History of present illness Wesley Barfield is a 73 year old male who presents for follow up of diabetes type 2. Reports most BG in good range with less frequent low BG. He is now having low BG at night while sleeping again but not as frequent during the day. Currently he is taking lantus 13 units daily and meal coverage with humalog 4 units each meal. Pt denies difficulty with injections or self monitoring of BG. Denies any signs of infection or irritation at site of injections. Reports taking insulin as directed At time of visit: -Pt denies symptoms of hypertensive emergency (CP,SOB,CONNELLY, or blurred vision) and hypotension(dizziness or lightheadedness) -Pt denies symptoms of hypoglycemia ( sweaty, confusion, anxiety, tremor, hunger, palpitations) and hyperglycemia ( polydipsia, polyuria) -Pt denies potential medication adverse effect. Hypoglycemia Aware of hypoglycemia: yes Able to self treat low BG: Yes Frequent low Blood sugar: No Has supply of glucagon: Yes Type: type 2 SMBG 4-6 times daily A1c in range BG 50-140 Exam Const General: healthy appearing, comfortable, no acute distress Nutritional Appearance: average body habitus Orientation: oriented x3 HENMT Head: normal to inspection, atraumatic Ears: hearing grossly normal bilaterally Nose: no nasal discharge Mouth: oral mucosae normal, moist mucous membranes Teeth and gingiva: dentition normal Eyes General: appearance normal, both eyes and all related structures Eyelids: eyelids normal Conjunctivae: conjunctivae normal Sclera: sclerae normal Neck Neck: normal visual inspection Chest Chest palpation AND inspection: deferred Resp Effort AND Inspection: normal respiratory effort, able to speak in complete sentences, symmetric chest movement Cardio Rate: regular rate Rhythm: regular rhythm Heart Sounds: S1 normal, S2 normal GI Inspection: normal to inspection Auscultation: normal bowel sounds Palpation: soft Skin General: no rashes or lesions noted Wounds: no wounds Neuro General: gait normal, moves all extremities Cranial Nerves: CN's II-XI intact bilaterally Extrem General: normal to inspection, full ROM, normal capillary refill Psych Appearance: well kempt Mental Status: mental status grossly normal Mood: congruent mood Affect: normal affect Speech and Movement: speech and movement normal Attitude: cooperative Thought Process: normal Thought Content: normal Judgment: judgment good Weight and fatigue symptoms: Denies snoring Cardiopulmonary symptoms: Denies chest pain at rest, dyspnea on exertion, lightheadedness or myalgias GI symptoms: Denies constipation, diarrhea, nausea/dyspepsia or vomiting Skin and extremity symptoms: Denies erectile dysfunction Other symptoms: Denies blurry vision or change in vision Intake Vital Signs12/27/17 Height 5 ft 9 in 12/27/17 Weight: 157 lb 12/27/17 Body Mass Index (BMI) 23.1 Intake Visit Reasons: FU Allergies Antihistamines - Alkylamine Allergy (Verified 10/25/17 08:24) Other SHRIMP Allergy (Uncoded 10/25/17 08:24) Anaphylaxis Medications acetylcysteine (bulk) powder ea MISCELLANEOUS 07/20/17 [History Confirmed 10/25/17] aspirin 81 mg tablet,delayed release 81 mg PO QDAY 07/20/17 [History Confirmed 10/25/17] cholecalciferol (vitamin D3) 1,000 unit capsule 1,000 unit PO QDAY cap 07/20/17 [History Confirmed 10/25/17] cinnamon bark 500 mg capsule mg PO 07/20/17 [History Confirmed 10/25/17] insulin aspart U-100 100 unit/mL subcutaneous solution See Label Instructions SC QDAY 07/20/17 [History Confirmed 10/25/17] insulin glargine (U-100) 100 unit/mL (3 mL) subcutaneous pen 15 unit SC QDAY 07/20/17 [History Confirmed 10/25/17] lisinopril 5 mg tablet 5 mg PO QDAY 07/20/17 [History Confirmed 10/25/17] lovastatin 20 mg tablet 20 mg PO QDAY 07/20/17 [History Confirmed 10/25/17] magnesium 200 mg tablet 400 mg PO QDAY tab 07/20/17 [History Confirmed 10/25/17] metformin 500 mg tablet 500 mg PO BID 07/20/17 [History Confirmed 10/25/17] multivitamin capsule 1 cap PO QDAY 07/20/17 [History Confirmed 10/25/17] saw palmetto fruit 450 mg capsule 450 mg PO QDAY cap 07/20/17 [History Confirmed 10/25/17] sertraline 50 mg tablet 50 mg PO QDAY 07/20/17 [History Confirmed 10/25/17] thisilyn PO 07/20/17 [History Confirmed 10/25/17] [facility] Medical History Back problem (Acute) Diabetes type 2, controlled (Acute) H/O: pneumonia (Acute) Surgical History History of tonsillectomy (Acute) Family History Unknown Cancer Diabetes Kidney stones CVA (cerebral vascular accident) Social History Smoking Status: Never smoker alcohol intake: current alcohol intake frequency: a few times a month substance use type: does not use Assessment AND Plan Problems 1. Controlled type 2 diabetes mellitus without complication, with long-term current use of insulin E11.9 Plan Adjust long acting insuulin by 1-2 units. Labs as ordered. Monitor for low BG Continue current regimen otherwise. Orders Orders: Plan Detail Additional Comments 1. Please schedule follow up in 3 months. 2. Lab work one week before appointment. 3. Discussed importance of regular exercise and recommend starting or continuing a regular exercise program for good health. 4. The patient was encouraged to lose weight for good health 5. The importance of monitoring blood sugar regularly was reviewed. 6. The importance of monitoring the HBA1c level regularly was reviewed. 7. The importance of prper foot care and regularly checking feet to prevent sores and loss of limbs was reviewed. 8. The importance of keeping BP at or below 130/80 to prevent stroke, heart attacks, kidney failure, blindness was reviewed. Spent approximately 30 minutes with patient with over 50% of time spent in discussion and counseling regarding medication adjustment, symptoms and treatment of hypoglycemia, diet adherence, and checking BG before driving. Coding Level of Care Code Off vis,est,level 4 Diagnoses Controlled type 2 diabetes mellitus without complication, with long-term current use of insulin E11.9 Diabetes mellitus hog buyer insulin use: with jail use Time Spent (min) 30 01/08/18 1441 <Electronically signed by Migdalia RAMOS> Date Migdalia J Shook BUSINESS REPRESENTATIVE-C Cosigner Signature: Date (if applicable) CC: HEMOGLOBIN A1C Collected: 01/02/2018 Status: F Source: [place] 7:23 AM [facility] REPOSITORY TYPE CODE TESTS RESULT OUT OF RANGE REFERENCE UNITS LAB L501.9985 4.2-6.3 % High HGB A1C 6.9 Performed By: #### L501.9985 #### [facility] [address] [place], [address] PROGRESS Observed: 11/14/2017 Status: COMPLETED Source: [place] 9:08 AM [facility] REPOSITORY HNO ID: [id number] Author: Naldo Santillan III Service: (none) Author Type: Physician Type: Progress Notes Filed: 11/14/2017 12:35 PM Note Text: SUBJECTIVE: Chief Complaint: Wesley Barfield is a 72 year old male who presents for comprehensive problem evaluation. New concerns today include 1. diabetes mellitus II with CKD--good diet and regular exercise. Very good understanding of diet and insulin dose. PEMA Monsalve helping. 2. hypertension 3. hyperlipidemia 4. depression--improved. 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 5. ch low back pain. 2 recent exacerbations with intense disabling pain. Careful not to forward flex Lab 10/04/17: glu 134 creat 0.92 GFR 85 chol 106 TG 62 HDL 47 LDL 47 Exercises regularly Yes and Walking Prostate cancer screening up to date Yes Colon cancer screening is up to date Yes Last Hemoccult was done 2016 Last colonoscopy was done never Cholesterol screening up to date Yes Current Outpatient Prescriptions on File Prior to Visit: lisinopril (ZESTRIL, PRINIVIL) 5 mg tablet TAKE ONE TABLET BY MOUTH EVERY DAY metFORMIN ER (GLUCOPHAGE XR) 500 mg 24 hr tablet Take 2 tablets by mouth daily with breakfast. blood sugar diagnostic (ACCU-CHEK PENNY PLUS TEST STRP) test strip Test blood sugar(s) 3-4 times daily. Dx: Type 2 DM - Controlled E11.9 Insulin: Yes EASY TOUCH 31 gauge x 1/4 ndle Use as directed to inject insulins sertraline (ZOLOFT) 50 mg tablet Take 1 tablet by mouth once daily. insulin aspart (NOVOLOG FLEXPEN) 100 unit/mL inpn Inject 5 units subcutaneously before meals and at bedtime. insulin glargine (LANTUS SOLOSTAR) 100 unit/mL (3 mL) inpn 15 Units SUBCUTANEOUS DAILY naproxen (NAPROSYN) 500 mg tablet Take 1 tablet by mouth twice daily as needed (for pain/inflammation). Take with food. lovastatin (MEVACOR) 20 mg tablet Take 1 tablet by mouth once daily. FOR CHOLESTEROL magnesium oxide (MAG-OX) 400 mg tablet Take 1 tablet by mouth once daily. Lancets (ACCU-CHEK MULTICLIX LANCET) lancets Use as instructed 4 times/day Dx 250.00 on insulin Cholecalciferol, Vitamin D3, 1,000 unit cap Take 1 capsule by mouth once daily. glucagon, human recombinant, (GLUCAGON EMERGENCY) 1 mg injection Inject 1 mg intramuscularly as directed. INJECT FOR INSULIN SHOCK COMPOUNDED PRESCRIPTION accu-check avia test strips. check BS 3 times daily aspirin(ECOTRIN LOW STRENGTH 81 MG TAB) Take one(1) tablet daily. SAW PALMETTO 7.5 MG-40 MG-160 MG ORAL CAP Take one(1) tablet daily. ONE DAILY MULTI-VITAMIN ORAL TAB Take one(1) tablet daily. cyclobenzaprine (FLEXERIL) 10 mg tablet Take 1 tablet by mouth three times daily as needed for Muscle Spasm. (Patient not taking: Reported on 11/14/2017 ) No current facility-administered medications on file prior to visit. PAST MEDICAL HISTORY Diagnosis Date - Backache, unspecified - Diabetes mellitus type 2, controlled, without complications ([facility]) 05/01/2015 - Hyperlipidemia LDL goal < 100 02/01/2013 - Hyperplasia of prostate - Other and unspecified hyperlipidemia - Plantar fasciitis 10/04/2011 - Psoriasis and similar disorders - Type II or unspecified type diabetes mellitus without mention of complication, not stated as uncontrolled - Vitamin D deficiency 10/22/2013 - Vitiligo PAST SURGICAL HISTORY Procedure Laterality Date - REMOVAL ADENOIDS,PRIMARY,<12 Y/O Adenoidectomy - REMOVAL OF TONSILS,<12 Y/O Tonsillectomy FAMILY HISTORY Problem Relation Age of Onset - Cancer Father prostate - Breast Cancer Sister - Diabetes Daughter - Ischemic Heart Disease Mother [place] - Heart Mother - Hypertension Mother Social History Marital status: Spouse name: Years of education: Number of children: Social History Main Topics Smoking status: Never Smoker Smokeless tobacco: Never Used Alcohol use: No Drug use: No Immunization History Administered Date(s) Administered DTaP (Age<7) 09/21/2005 Influenza Seasonal - High Dose - Age 65+ 05/27/2015 03/31/2016 Influenza Seasonal Inj Quadrivalent Age 3+ 03/24/2017 Influenza Vaccine, Split-Non Spec 04/27/2006 05/03/2007 05/28/2008 04/07/2009 04/14/2010 04/14/2011 Pneumococcal-13 Vac Conjugate 10/29/2014 Pneumovax 06/24/2004 11/04/2015 Tetanus Diphtheria Booster (Age >7), Adsorbed 12/02/2012 Deferred Date(s) Deferred Zostavax 05/27/2015 ACTIVE PROBLEM LIST Vitiligo Psoriasis Adjustment Disorder Marital Conflict Hyperlipidemia With Target Ldl Less Than 100 Vitamin D Deficiency Diabetes Mellitus Type 2, Controlled, Without Complications (Hcc) Anxiety and Depression Chronic Cough REVIEW OF SYSTEMS General: Denies fever, chills, night sweats, or changes in weight. Dermatologic: Denies any new skin conditions, rashes or changing moles. Eyes: Denies recent visual changes. ENT: Respiratory: Denies any cough, dyspnea, or wheezing. Cardiovascular: Denies any chest pain with exertion or at rest, palpitations, syncope, or edema. Gastrointestinal: Denies any nausea, vomiting, abdominal pain, heartburn, changes in bowel habit, Denies any rectal bleeding. Genitourinary: Denies Denies problems with urinary stream., Denies dysuria, frequency, urgency, incontinence, erectile dysfunction, hematuria and nocturia. Musculoskeletal: Denies any joint swelling, crepitus, joint pain, or loss of range of motion., Positive for back pain Neurologic: Denies any headaches, tremors, dizziness, vertigo, memory loss, confusion., Denies weakness, numbness or tingling. Psychiatric: Denies any sleeping problems, history of abuse, marital discord., Positive for anxiety, depression Hematologic/Lymphatic/Immunologic: Denies anemia, bruising, bleeding abnormalities. Endocrine: Denies any heat or cold intolerance, polyuria or polydipsia. OBJECTIVE: PHYSICAL EXAMINATION: BP 106/67 Pulse 60 Resp 16 Wt 70.3 kg (155 lb) BMI 22.96 kg/m? GENERAL APPEARANCE Well appearing, alert, in no acute distress, well-hydrated, well nourished. SKIN: psoriasis plaque in sacrum. Depigmentation forearms. HEAD: No significant findings. NECK: Supple, no lymphadenopathy, normal thyroid, no carotid bruits and no JVD BACK: Back symmetric, Normal curvature, No CVAT. LUNGS: normal pulmonary exam and clear to auscultation and percussion HEART: Normal PMI, Regular rate and rhythm, Normal heart sounds, S1 and S2 and No murmurs. BREASTS: ABDOMEN: Soft, Flat, Non-tender, No palpable masses and No hepatosplenomegaly. EXTREMTIES: extremities normal, no deformities, no skin discoloration, no edema, normal pulses bilaterally. NEURO: Awake, alert and oriented x 3, Reflexes symmetrical, Normal gait, No involuntary motions., muscle tone normal, muscle strength normal GENITALIA: Penis normal, no urethral discharge, scrotum normal to palpation, no hernias RECTAL: Anus normal, no anorectal masses, Prostate normal size, consistency, no nodules, and no tenderness, rubbery 2/4 prostate. Smooth, non-tender Appearance: well dressed well groomed, cooperative and pleasant Behavior: good eye contact Speech: fluent and coherent Mood: euthymic Affect: appropriate Perceptions: none Thought process: goal directed Thought Content: normal Intelligence level: normal Insight: good Judgment: good ASSESSMENT: diabetes mellitus II at goal hypertension--at goal hyperlipidemia--at goal depression/anxiety--well controlled PLAN: healthy diabetic diet and regular exercise stay socially connected same medications cologuard--discussed screening colonoscopy and conscious sedatoin recheck labs in 6 mos MONAE Bragg MD Observed: 11/14/2017 Status: COMPLETED Source: [place] 8:40 AM [facility] REPOSITORY Office Visit (FAMPWS) WESLEY BARFIELD ([id number]) 1945 M Date Time Provider Department 11/14/17 8:40 AM NALDO SANTILLAN III During your visit today, we recorded the following information about you: Pulse Respiration Blood pressure Weight 60/minute 16/minute 106/67 70.3 kg Naldo Santillan III 11/14/2017 12:35 PM Signed SUBJECTIVE: Chief Complaint: Wesley Barfield is a 72 year old male who presents for comprehensive problem evaluation. New concerns today include 1. diabetes mellitus II with CKD--good diet and regular exercise. Very good understanding of diet and insulin dose. BJ Shook helping. 2. hypertension 3. hyperlipidemia 4. depression--improved. 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 5. ch low back pain. 2 recent exacerbations with intense disabling pain. Careful not to forward flex Lab 10/04/17: glu 134 creat 0.92 GFR 85 chol 106 TG 62 HDL 47 LDL 47 Exercises regularly Yes and Walking Prostate cancer screening up to date Yes Colon cancer screening is up to date Yes Last Hemoccult was done 2016 Last colonoscopy was done never Cholesterol screening up to date Yes Current Outpatient Prescriptions on File Prior to Visit: lisinopril (ZESTRIL, PRINIVIL) 5 mg tablet TAKE ONE TABLET BY MOUTH EVERY DAY metFORMIN ER (GLUCOPHAGE XR) 500 mg 24 hr tablet Take 2 tablets by mouth daily with breakfast. blood sugar diagnostic (ACCU-CHEK PENNY PLUS TEST STRP) test strip Test blood sugar(s) 3-4 times daily. Dx: Type 2 DM - Controlled E11.9 Insulin: Yes EASY TOUCH 31 gauge x 1/4 ndle Use as directed to inject insulins sertraline (ZOLOFT) 50 mg tablet Take 1 tablet by mouth once daily. insulin aspart (NOVOLOG FLEXPEN) 100 unit/mL inpn Inject 5 units subcutaneously before meals and at bedtime. insulin glargine (LANTUS SOLOSTAR) 100 unit/mL (3 mL) inpn 15 Units SUBCUTANEOUS DAILY naproxen (NAPROSYN) 500 mg tablet Take 1 tablet by mouth twice daily as needed (for pain/inflammation). Take with food. lovastatin (MEVACOR) 20 mg tablet Take 1 tablet by mouth once daily. FOR CHOLESTEROL magnesium oxide (MAG-OX) 400 mg tablet Take 1 tablet by mouth once daily. Lancets (ACCU-CHEK MULTICLIX LANCET) lancets Use as instructed 4 times/day Dx 250.00 on insulin Cholecalciferol, Vitamin D3, 1,000 unit cap Take 1 capsule by mouth once daily. glucagon, human recombinant, (GLUCAGON EMERGENCY) 1 mg injection Inject 1 mg intramuscularly as directed. INJECT FOR INSULIN SHOCK COMPOUNDED PRESCRIPTION accu-check avia test strips. check BS 3 times daily aspirin(ECOTRIN LOW STRENGTH 81 MG TAB) Take one(1) tablet daily. SAW PALMETTO 7.5 MG-40 MG-160 MG ORAL CAP Take one(1) tablet daily. ONE DAILY MULTI-VITAMIN ORAL TAB Take one(1) tablet daily. cyclobenzaprine (FLEXERIL) 10 mg tablet Take 1 tablet by mouth three times daily as needed for Muscle Spasm. (Patient not taking: Reported on 11/14/2017 ) No current facility-administered medications on file prior to visit. PAST MEDICAL HISTORY Diagnosis Date - Backache, unspecified - Diabetes mellitus type 2, controlled, without complications (HCC) 05/01/2015 - Hyperlipidemia LDL goal < 100 02/01/2013 - Hyperplasia of prostate - Other and unspecified hyperlipidemia - Plantar fasciitis 10/04/2011 - Psoriasis and similar disorders - Type II or unspecified type diabetes mellitus without mention of complication, not stated as uncontrolled - Vitamin D deficiency 10/22/2013 - Vitiligo PAST SURGICAL HISTORY Procedure Laterality Date - REMOVAL ADENOIDS,PRIMARY,<12 Y/O Adenoidectomy - REMOVAL OF TONSILS,<12 Y/O Tonsillectomy FAMILY HISTORY Problem Relation Age of Onset - Cancer Father prostate - Breast Cancer Sister - Diabetes Daughter - Ischemic Heart Disease Mother [place] - Heart Mother - Hypertension Mother Social History Marital status: Spouse name: Years of education: Number of children: Social History Main Topics Smoking status: Never Smoker Smokeless tobacco: Never Used Alcohol use: No Drug use: No Immunization History Administered Date(s) Administered DTaP (Age<7) 09/21/2005 Influenza Seasonal - High Dose - Age 65+ 05/27/2015 03/31/2016 Influenza Seasonal Inj Quadrivalent Age 3+ 03/24/2017 Influenza Vaccine, Split-Non Spec 04/27/2006 05/03/2007 05/28/2008 04/07/2009 04/14/2010 04/14/2011 Pneumococcal-13 Vac Conjugate 10/29/2014 Pneumovax 06/24/2004 11/04/2015 Tetanus Diphtheria Booster (Age >7), Adsorbed 12/02/2012 Deferred Date(s) Deferred Zostavax 05/27/2015 ACTIVE PROBLEM LIST Vitiligo Psoriasis Adjustment Disorder Marital Conflict Hyperlipidemia With Target Ldl Less Than 100 Vitamin D Deficiency Diabetes Mellitus Type 2, Controlled, Without Complications (Hcc) Anxiety and Depression Chronic Cough REVIEW OF SYSTEMS General: Denies fever, chills, night sweats, or changes in weight. Dermatologic: Denies any new skin conditions, rashes or changing moles. Eyes: Denies recent visual changes. ENT: Respiratory: Denies any cough, dyspnea, or wheezing. Cardiovascular: Denies any chest pain with exertion or at rest, palpitations, syncope, or edema. Gastrointestinal: Denies any nausea, vomiting, abdominal pain, heartburn, changes in bowel habit, Denies any rectal bleeding. Genitourinary: Denies Denies problems with urinary stream., Denies dysuria, frequency, urgency, incontinence, erectile dysfunction, hematuria and nocturia. Musculoskeletal: Denies any joint swelling, crepitus, joint pain, or loss of range of motion., Positive for back pain Neurologic: Denies any headaches, tremors, dizziness, vertigo, memory loss, confusion., Denies weakness, numbness or tingling. Psychiatric: Denies any sleeping problems, history of abuse, marital discord., Positive for anxiety, depression Hematologic/Lymphatic/Immunologic: Denies anemia, bruising, bleeding abnormalities. Endocrine: Denies any heat or cold intolerance, polyuria or polydipsia. OBJECTIVE: PHYSICAL EXAMINATION: BP 106/67 Pulse 60 Resp 16 Wt 70.3 kg (155 lb) BMI 22.96 kg/m? GENERAL APPEARANCE Well appearing, alert, in no acute distress, well-hydrated, well nourished. SKIN: psoriasis plaque in sacrum. Depigmentation forearms. HEAD: No significant findings. NECK: Supple, no lymphadenopathy, normal thyroid, no carotid bruits and no JVD BACK: Back symmetric, Normal curvature, No CVAT. LUNGS: normal pulmonary exam and clear to auscultation and percussion HEART: Normal PMI, Regular rate and rhythm, Normal heart sounds, S1 and S2 and No murmurs. BREASTS: ABDOMEN: Soft, Flat, Non-tender, No palpable masses and No hepatosplenomegaly. EXTREMTIES: extremities normal, no deformities, no skin discoloration, no edema, normal pulses bilaterally. NEURO: Awake, alert and oriented x 3, Reflexes symmetrical, Normal gait, No involuntary motions., muscle tone normal, muscle strength normal GENITALIA: Penis normal, no urethral discharge, scrotum normal to palpation, no hernias RECTAL: Anus normal, no anorectal masses, Prostate normal size, consistency, no nodules, and no tenderness, rubbery 2/4 prostate. Smooth, non-tender Appearance: well dressed well groomed, cooperative and pleasant Behavior: good eye contact Speech: fluent and coherent Mood: euthymic Affect: appropriate Perceptions: none Thought process: goal directed Thought Content: normal Intelligence level: normal Insight: good Judgment: good ASSESSMENT: diabetes mellitus II at goal hypertension--at goal hyperlipidemia--at goal depression/anxiety--well controlled PLAN: healthy diabetic diet and regular exercise stay socially connected same medications cologuard--discussed screening colonoscopy and conscious sedatoin recheck labs in 6 mos MONAE Bragg MD, Frank A III 11/14/2017 9:35 AM Signed PLAN: healthy diabetic diet and regular exercise same medications cologuard recheck labs in 6 mos Naldo Santillan III MD Referring Provider: NALDO SANTILLAN III [[id number]] Allergies As of Date: 11/14/2017 Noted Allergy Reaction shrimp [Other] 03/18/2005 10 - Anaphylaxis Date Reviewed: 11/14/2017 Reviewed by: Jessica Mackey ([employer])MAGGI - Fully Assessed Reason for Visit: Physical [83] Primary Visit Diagnosis:Psoriasis [L40.9] Other Visit Diagnoses:Vitiligo [L80] Hyperlipidemia with target LDL less than 100 [E78.5] Adjustment disorder with mixed anxiety and depressed mood [F43.23] Controlled type 2 diabetes mellitus without complication, with long-term current use of insulin (HCC) [E11.9, Z79.4] Screening for colon cancer [Z12.11] Order(s):COLOGUARD [SQCOLGRD] Order #: [id number] FUTURE ALBUMIN/CREAT RATIO RND UR [SQUACR] Order #: [id number] FUTURE HGB A1C [QOYMY2E] Order #: [id number] FUTURE LIPID PANEL BASIC [SQLIPB] Order #: [id number] FUTURE COMP METABOLIC PANEL [SQCMP] Order #: [id number] FUTURE HGB A1C [CZVUB7V] Order #: [id number] FUTURE Prescriptions as of 11/14/2017 Sig: LISINOPRIL 5 MG TABLET TAKE ONE TABLET BY MOUTH EVER* METFORMIN ER 500 MG TABLET,EX* Take 2 tablets by mouth daily* BLOOD SUGAR DIAGNOSTIC STRIPS Test blood sugar(s) 3- 4 times* EASY TOUCH 31 GAUGE X 1/4 NE* Use as directed to inject ins* SERTRALINE 50 MG TABLET Take 1 tablet by mouth once d* INSULIN ASPART U-100 100 UNI* Inject 5 units subcutaneously* INSULIN GLARGINE (U-100) 100 * 15 Units SUBCUTANEOUS DAILY NAPROXEN 500 MG TABLET Take 1 tablet by mouth twice * LOVASTATIN 20 MG TABLET Take 1 tablet by mouth once d* MAGNESIUM OXIDE 400 MG TABLET Take 1 tablet by mouth once d* LANCETS Use as instructed 4 times/day* CHOLECALCIFEROL (VITAMIN D3) * Take 1 capsule by mouth once * GLUCAGON (HUMAN RECOMBINANT) * Inject 1 mg intramuscularly a* COMPOUNDED PRESCRIPTION accu-check avia test strips. * ECOTRIN LOW STRENGTH 81 MG TA* Take one(1) tablet daily. SAW PALMETTO COMPLEX (PUMPKIN* Take one(1) tablet daily. ONE DAILY MULTI-VITAMIN TABLET Take one(1) tablet daily. CYCLOBENZAPRINE 10 MG TABLET Take 1 tablet by mouth three * Patient not taking: Reported on 11/14/2017 Problem List As Of Date 11/14/2017 Noted Resolved Backache, unspecified [M54.9] 10/15/2013 VITILIGO [L80] Pain in limb [M79.609] INVALID FOR*10/15/2013 Loss of weight [R63.4] INVALID FOR*10/15/2013 Concussion, unspecified [S06.0X9A] INVALID FOR*10/15/2013 Cellulitis and abscess of unspecified site [L03*INVALID FOR*10/15/2013 Psoriasis [L40.9] INVALID FOR* Plantar fasciitis [M72.2] INVALID FOR*10/15/2013 Adjustment disorder [F43.20] INVALID FOR* Marital conflict [Z63.0] INVALID FOR* Hyperlipidemia with target LDL less than 100 [E*INVALID FOR* Vitamin D deficiency [E55.9] INVALID FOR*11/14/2017 Diabetes mellitus type 2, controlled, without c*INVALID FOR* Anxiety and depression [F41.9, F32.9] INVALID FOR* Right lumbar radiculopathy [M54.16] INVALID FOR*03/31/2016 Anemia [D64.9] INVALID FOR*12/13/2016 Chronic cough [R05] INVALID FOR* Other instructions from your clinician: PLAN: healthy diabetic diet and regular exercise same medications cologuard recheck labs in 6 mos Naldo Santillan III MD Encounter Status:Closed by NALDO SANTILLAN III, MD on 11/14/17 ENDOCRINOLOGY VISIT Observed: 10/26/2017 Status: F Source: [place] RE[place] 8:09 AM [facility] REPOSITORY [facility] [place] [address] OFFICE VISIT Date of Service: 10/25/17 MR#: [id number] Acct: [id number] Name: WESLEY BARFIELD Rep #: [id number] : 1945 Provider: Migdalia Monsalve NP Age/Sex: 72/M Location: [facility] Status: Signed HPI History of present illness Wesley Barfield is a 72 year old male who presents for follow up of diabetes type 2. Reports most BG in good range with less frequent low BG. He is no longer having low BG at night while sleeping. Currently he is taking lantus 13 units daily and meal coverage with humalog 4 units each meal. Pt denies difficulty with injections or self monitoring of BG. Denies any signs of infection or irritation at site of injections. Reports taking insulin as directed At time of visit: -Pt denies symptoms of hypertensive emergency (CP,SOB,CONNELLY, or blurred vision) and hypotension(dizziness or lightheadedness) -Pt denies symptoms of hypoglycemia ( sweaty, confusion, anxiety, tremor, hunger, palpitations) and hyperglycemia ( polydipsia, polyuria) -Pt denies potential medication adverse effect. Hypoglycemia Aware of hypoglycemia: yes Able to self treat low BG: Yes Frequent low Blood sugar: No Has supply of glucagon: Yes Type: type 2 Glucose control symptoms: Reports hypoglycemic with activity Pertinent visit history: Denies recent 911 calls Self monitoring: Yes Glucometer type: accucheck Percentage of fasting blood glucose within goal: most of the time Diabetes education in past year: Yes Glucose testing: demonstrates correct use of meter Exam Const General: healthy appearing, comfortable, no acute distress Nutritional Appearance: average body habitus Orientation: oriented x3 HENMT Head: normal to inspection, atraumatic Ears: hearing grossly normal bilaterally Nose: no nasal discharge Mouth: oral mucosae normal, moist mucous membranes Teeth and gingiva: dentition normal Eyes General: appearance normal, both eyes and all related structures Eyelids: eyelids normal Conjunctivae: conjunctivae normal Sclera: sclerae normal Neck Neck: normal visual inspection Chest Chest palpation AND inspection: deferred Resp Effort AND Inspection: normal respiratory effort, able to speak in complete sentences, symmetric chest movement Cardio Rate: regular rate Rhythm: regular rhythm Heart Sounds: S1 normal, S2 normal GI Inspection: normal to inspection Auscultation: normal bowel sounds Palpation: soft Skin General: no rashes or lesions noted Wounds: no wounds Neuro General: gait normal, moves all extremities Cranial Nerves: CN's II-XI intact bilaterally Extrem General: normal to inspection, full ROM, normal capillary refill Psych Appearance: well kempt Mental Status: mental status grossly normal Mood: congruent mood Affect: normal affect Speech and Movement: speech and movement normal Attitude: cooperative Thought Process: normal Thought Content: normal Judgment: judgment good Weight and fatigue symptoms: Denies snoring Cardiopulmonary symptoms: Denies chest pain at rest, dyspnea on exertion, lightheadedness or myalgias GI symptoms: Denies constipation, diarrhea, nausea/dyspepsia or vomiting Skin and extremity symptoms: Denies erectile dysfunction Other symptoms: Denies blurry vision or change in vision Intake Vital Signs10/25/17 Height 5 ft 9.5 in 10/25/17 Weight: 160 lb 10/25/17 Body Mass Index (BMI) 23.3 10/25/17 Blood Pressure 119/73 10/25/17 Blood Pressure Location Lt popliteal 10/25/17 Blood Pressure Position Sitting Intake Visit Reasons: Diabetes Mellitus Type 2 Head Of History Required: No Accompanied by: Self Is patient in pain?: No Allergies Antihistamines - Alkylamine Allergy (Verified 10/25/17 08:24) Other SHRIMP Allergy (Uncoded 10/25/17 08:24) Anaphylaxis Medications acetylcysteine (bulk) powder ea MISCELLANEOUS 07/20/17 [History Confirmed 10/25/17] aspirin 81 mg tablet,delayed release 81 mg PO QDAY 07/20/17 [History Confirmed 10/25/17] cholecalciferol (vitamin D3) 1,000 unit capsule 1,000 unit PO QDAY cap 07/20/17 [History Confirmed 10/25/17] cinnamon bark 500 mg capsule mg PO 07/20/17 [History Confirmed 10/25/17] insulin aspart U-100 100 unit/mL subcutaneous solution See Label Instructions SC QDAY 07/20/17 [History Confirmed 10/25/17] insulin glargine (U-100) 100 unit/mL (3 mL) subcutaneous pen 15 unit SC QDAY 07/20/17 [History Confirmed 10/25/17] lisinopril 5 mg tablet 5 mg PO QDAY 07/20/17 [History Confirmed 10/25/17] lovastatin 20 mg tablet 20 mg PO QDAY 07/20/17 [History Confirmed 10/25/17] magnesium 200 mg tablet 400 mg PO QDAY tab 07/20/17 [History Confirmed 10/25/17] metformin 500 mg tablet 500 mg PO BID 07/20/17 [History Confirmed 10/25/17] multivitamin capsule 1 cap PO QDAY 07/20/17 [History Confirmed 10/25/17] saw palmetto fruit 450 mg capsule 450 mg PO QDAY cap 07/20/17 [History Confirmed 10/25/17] sertraline 50 mg tablet 50 mg PO QDAY 07/20/17 [History Confirmed 10/25/17] thisilyn PO 07/20/17 [History Confirmed 10/25/17] Nurse's Note: blood sugars : low : 60 high : 205 [facility] Medical History Back problem (Acute) Diabetes type 2, controlled (Acute) H/O: pneumonia (Acute) Surgical History History of tonsillectomy (Acute) Family History Unknown Cancer Diabetes Kidney stones CVA (cerebral vascular accident) Social History Smoking Status: Never smoker alcohol intake: current alcohol intake frequency: a few times a month substance use type: does not use ROS Const Constitutional: Positive for fatigue; no anorexia, body ache, chills, fever(s), frequent falls, decreased energy, malaise, night sweats, weakness, weight change, sleep problems, abnormal sleep pattern, change in appetite, other, headache(s), snoring or excessive sweating Eyes Eyes: No blurry vision, change in vision, double vision, discharge, dry eyes, bulging eyes, floaters, visual disturbances, eye pain, light sensitivity, spots in vision, tunnel vision or other ENT ENT: Positive for nasal discharge; no abnormal hearing, ear pain, ear discharge, ear pressure, hearing loss, tinnitus, dizziness/vertigo, balance problems, nosebleed/epistaxis, nasal congestion, nasal obstruction, nose pain, sinus pressure, sinus pain, post nasal drip, headache(s), facial pain, dental pain, dry mouth, bad breath, hoarseness, lip swelling, mouth lesions, mouth pain, sore throat, tongue swelling, throat swelling, other, difficulty swallowing or neck pain Resp Respiratory: Positive for cough; no change in phlegm color, chest congestion, excessive phlegm production, hemoptysis, pain on inspiration, shortness of breath, pain with cough, snoring, stridor, wheezing or other Cardio Cardiology: No chest pain at rest, chest pain with exertion, leg pain with exertion, excessive sweating, shortness of breath, dyspnea on exertion, generalized swelling, irregular heart rhythm, lightheadedness, orthopnea, radiating jaw, neck or arm pain, fast heart rate, slow heart rate, palpitations or other Gastro GI: No abdominal pain, belching, bloating, change in bowel habits, change in stool character, coffee ground emesis, constipation, cramping, diarrhea, heartburn, difficulty swallowing, feeling full early, excessive flatus, incontinent of stools, Vomiting blood/hematemesis, blood in stool, loose stools, Black,tarry stools, nausea/dyspepsia, pain with swallowing, vomiting or other Genitourinary Male: No difficulty urinating, burning urination, painful urination, urinary incontinence, urinary frequency, urinary urgency, urinary hesitancy, urinary retention, blood in urine, Frequent nighttime urination/ nocturia, post void dribbling, suprapubic fullness, side pain, sexual problems, genital lesions, genital itching, erectile dysfunction, penile discharge, difficulty with ejaculations, blood in semen, scrotal swelling, testicle lump, testicle pain or other Musc Musculoskeletal: No abnormal walking, joint pain, back pain, deformity, joint swelling, limited range of motion, loss of height, muscle cramps, muscle weakness, decreased muscle mass, body aches, neck pain, numbness, radiating pain into limb, stiffness, tingling or other Skin Skin: No acne, hair loss, change in hair, nail changes, boil, change in skin color, dry skin, redness, excessive hair growth, yellowing of the skin, lesions, itching, rash, skin pain, skin ulcer, sores, skin swelling, wounds or other Breast Breast: No other Neuro Neurology: No frequent falls, weakness, visual disturbances, abnormal hearing, headache(s), abnormal walking, numbness or tingling Psych Psychiatric: No abnormal sleep pattern, No change in appetite Endo Endocrine: Positive for fatigue; no other or excessive sweating Aller/Imm Allergy/Immunologic: No lip swelling, tongue swelling, throat swelling, wheezing or itchy eyes Assessment AND Plan Problems 1. Controlled type 2 diabetes mellitus without complication, with long-term current use of insulin E11.9 Plan Continue current insulin regimen Evaluate for low BG as warmer weather approaches. Discussed appropriate snacks RTC 3 months Plan Detail Additional Comments 1. Please schedule follow up in 3 months. 2. Lab work one week before appointment. 3. Discussed importance of regular exercise and recommend starting or continuing a regular exercise program for good health. 4. The patient was encouraged to lose weight for good health 5. The importance of monitoring blood sugar regularly was reviewed. 6. The importance of monitoring the HBA1c level regularly was reviewed. 7. The importance of prper foot care and regularly checking feet to prevent sores and loss of limbs was reviewed. 8. The importance of keeping BP at or below 130/80 to prevent stroke, heart attacks, kidney failure, blindness was reviewed. Spent approximately 30 minutes with patient with over 50% of time spent in discussion and counseling regarding medication adjustment, symptoms and treatment of hypoglycemia, diet adherence, and checking BG before driving. 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 Time Spent (min) 30 10/26/17 0809 <Electronically signed by Migdalia J Shook BUSINESS REPRESENTATIVE-C> Date Migdalia Monsalve BUSINESS REPRESENTATIVE-C Charliigner Signature: Date (if applicable) CC: PROGRESS Observed: 10/07/2017 Status: COMPLETED Source: [place] 4:03 PM [facility] REPOSITORY HNO ID: [id number] Author: Naldo Santillan III Service: (none) Author Type: Physician Type: Progress Notes Filed: 10/07/2017 4:03 PM Note Text: Doroteo, The lab results from 10/04/17 are as follows: Hemoglobin A1c 6.6 glucose 134 cholesterol 106 triglycerides 62 HDL 47 LDL 47 Sodium 141 potassium 4.1 creatinine 0.9 GFR 85 albumin/creatinine ratio 9.3 These labs are excellent! Continue a good diabetic diet and same medications. Recheck labs in 6 months Naldo Santillan III, MD, UGOFP PROGRESS Observed: 10/04/2017 Status: COMPLETED Source: [place] 6:26 PM [facility] REPOSITORY HNO ID: [id number] Author: Naldo Santillan III Service: (none) Author Type: Physician Type: Progress Notes Filed: 10/04/2017 6:26 PM Note Text: Staff, Please obtain lab results were sent to [facility] on 10/04/17. Naldo Santillan III, MD, UGOFP BASIC METABOLIC PANL Collected: 10/04/2017 Status: F Source: [place] 8:16 AM [facility] REPOSITORY TYPE CODE TESTS RESULT OUT OF REFERENCE UNITS RANGE LAB GLU 74-99 mg/dL Test Glucose sent to [facility]. Result Comment: Account Credited [facility] LAB BUN 9-24 mg/dL Test sent BUN to [facility]. Result Comment: Account Credited [facility]IDE LAB CRET 0.73-1.22 mg/dL Creatinine Test sent to [facility]. Result Comment: Account Credited HIDE LAB NA 136-144 mmol/L Test Sodium sent to [facility]. Result Comment: Account Credited HIDE LAB K 3.7-5.1 mmol/L Test Potassium sent to [facility]. Result Comment: Account Credited [facility] CL 97-105 mmol/L Test Chloride sent to [facility]. Result Comment: Account Credited [facility] CO2 22-30 mmol/L Test sent CO2 to [facility]. Result Comment: Account Credited [facility] AGAP 9-18 mmol/L Test sent Anion Gap to [facility]. Result Comment: Account Credited [facility] CA 8.5-10.2 mg/dL Test Calcium, Total sent to [facility]. Result Comment: Account Credited [facility] GFRAA eGFR- Amer. Test sent to [facility]. Result Comment: Account Credited HIDE LAB GFRNAA . eGFR-All Test sent Other Races to [facility]. Result Comment: Account Credited [facility] LAB GFRPED eGFR-Ped. Test sent Factor to [facility]. Result Comment: Account Credited [facility] HEMOGLOBIN A1C Collected: 10/04/2017 Status: F Source: [place] 8:16 AM [facility] REPOSITORY TYPE CODE TESTS RESULT OUT OF REFERENCE UNITS RANGE LAB HGBA1C 4.0-6.0 % Test Hemoglobin A1c sent to [facility]. Result Comment: Account Credited [facility] LAB HBA0 mg/dL Est. Test sent Average Glucose to [facility]. Result Comment: Account Credited [facility] LIPID PANEL, BASIC Collected: 10/04/2017 Status: F Source: [place] 8:16 AM [facility] REPOSITORY TYPE CODE TESTS RESULT OUT OF REFERENCE UNITS RANGE LAB CHOL <200 mg/dL Cholesterol Test sent to [facility]. Result Comment: Account Credited [facility] TRIGLY <150 mg/dL Triglyceride Test sent to [facility]. Result Comment: Account Credited [facility] HDL >39 mg/dL HDL-Cholesterol Test sent to [facility]. Result Comment: Account Credited [facility] LDL <100 mg/dL LDL-Cholesterol Test sent to [facility]. Result Comment: Account Credited [facility] NONHDL 90-159 mg/dL Non HDL Test Cholesterol sent to [facility]. Result Comment: Account Credited [facility] FT hrs Fasting Time 10 LAB VLDL <30 mg/dL VLDL Cholesterol Test sent to [facility]. Result Comment: Account Credited [facility] TCHDL <5.10 Test sent TC:HDL Ratio to [facility]. Result Comment: Account Credited [facility] LAB LDLHDL <2.54 Test sent LDL:HDL Ratio to [facility]. Result Comment: Account Credited [facility] ALBUMIN/CREAT RATIO Collected: 10/04/2017 Status: F Source: [place] 8:16 AM [facility] TYPE CODE TESTS RESULT OUT OF REFERENCE UNITS RANGE LAB UCRR 20-300 mg/dL Test sent to [facility]. Result Comment: Account Credited [facility] LAB UALBR 0.0-23.0 mg/L Test Albumin Urine sent to [facility]. Result Comment: Account Credited [facility] LAB UALBCR 0-30 mg/g Albumin/Creat Ratio Test sent to [facility]. Result Comment: Account Credited [facility] BASIC METABOLIC Collected: 10/04/2017 Status: F Source: [place] PROFILE (BMP) 7:53 AM [facility] REPOSITORY TYPE CODE TESTS RESULT OUT OF RANGE REFERENCE UNITS LAB L501.0100 74-106 mg/dL High GLU 134 Result Comment: Fasting Glucose result greater than or equal to 126 mg/dL suggests DIABETES MELLITUS per A.D.A. criteria. Please note revised GLUCOSE reference range effective 2017. LAB L501.1000 7-18 mg/dL High BUN 20 LAB L501.1100 0.70-1.30 mg/dL Normal CREAT,SERUM 0.92 Result Comment: The validity of the calculated GFR AND GFRAA in patients over 70 years has not been determined. Clinical correlation is essential. LAB L501.1110 >60 mL/min Normal EST GFR 85 Result Comment: Non- GFR Calc LAB L501.1115 >60 mL/min Normal EST GFR - AA 103 Result Comment: GFR Calc LAB L501.1300 10-20 RATIO High BUN/CRE 21.6 LAB L501.2200 8.5-10.1 mg/dL CA Normal 8.7 LAB L501.5300 136-145 mmol/L NA Normal 141 LAB L501.5600 3.5-5.1 mmol/L K Normal 4.1 LAB L501.5900 98-107 mmol/L CL Normal 107 LAB L501.6100 21.0-32.0 mmol/L Normal CO2 27.0 LAB L501.6200 5-15 Normal GAP 7 Performed By: #### L500.2500, L500.4100 #### [facility] [address] [place], [place], [id number] LIPID PROFILE Collected: 10/04/2017 Status: F Source: [place] 7:53 AM [facility] REPOSITORY TYPE CODE TESTS RESULT OUT OF RANGE REFERENCE UNITS LAB L501.4900 200 mg/dL Normal CHOL 106 Result Comment: <200 mg/dL Desirable 200-240 mg/dL Borderline >240 mg/dL High Risk LAB L501.5000 mg/dL Normal TRIG 62 Result Comment: The drugs N-Acetylcysteine and Metamizole may falsely depress this assay. Serum Triglycerides Reference Interval Normal <150 mg/dL Borderline high 150 - 199 mg/dL High 200 - 499 mg/dL Very High > or = 500 mg/dL LAB L501.6400 mg/dL Normal HDL 47 Result Comment: The drugs N-Acetylcysteine and Metamizole may falsely depress this assay. Reference Range HDL <40 mg/dL Low HDL Cholesterol HDL >or= 60 mg/dL High HDL Cholesterol LAB L501.6500 0-130 mg/dL Normal LDL 47 LAB L501.6600 5-40 mg/dL Normal VLDL 12 Performed By: #### L500.2500, L500.4100 #### [facility] [address] [place], [place], [id number] HEMOGLOBIN A1C Collected: 10/04/2017 Status: F Source: [place] 7:53 AM [facility] REPOSITORY TYPE CODE TESTS RESULT OUT OF RANGE REFERENCE UNITS LAB L501.9985 4.2-6.3 % High HGB A1C 6.6 Performed By: #### L501.9985 #### [facility] [address] [place], [place], [address] MICROALB:CREAT Collected: 10/04/2017 Status: F Source: [place] RATIO,RANDOM UR 7:53 AM [facility] REPOSITORY TYPE CODE TESTS RESULT OUT OF RANGE REFERENCE UNITS LAB L501.1200 NO RANGE EST. mg/dL Normal UR CREAT 112.00 LAB L502.0500 NO RANGE EST. mg/L Normal 10.4 MICROALBUMIN ,UR LAB L502.0600 <30 mg/g CRE mg/g CRE Normal 9.3 MALB:CREAT Performed By: #### L502.0250 #### [facility] [address] [place], [address] ENDOCRINOLOGY VISIT Observed: 08/31/2017 Status: F Source: [place] REPORT 12:54 PM [facility] REPOSITORY [facility] [address] [place] [address] OFFICE VISIT Date of Service: 08/31/17 MR#: [id number] Acct: [id number] Name: WESLEY BARFIELD Rep #: [id number] : 1945 Provider: Migdalia Monsalve NP Age/Sex: 72/M Location: [facility] Status: Signed HPI History of present illness Wesley Barfield is a 72 year old male who presents for follow up of diabetes type 2. Reports most BG in good range with less frquent low BG. He is no longer having low BG at night while sleeping. Currently he is taking lantus 13 units daily and meal coverage with humalog 4 units each meal. Pt denies difficulty with injections or self monitoring of BG. Denies any signs of infection or irritation at site of injections. Reports taking insulin as directed At time of visit: -Pt denies symptoms of hypertensive emergency (CP,SOB,CONNELLY, or blurred vision) and hypotension(dizziness or lightheadedness) -Pt denies symptoms of hypoglycemia ( sweaty, confusion, anxiety, tremor, hunger, palpitations) and hyperglycemia ( polydipsia, polyuria) -Pt denies potential medication adverse effect. Hypoglycemia Aware of hypoglycemia: yes Able to self treat low BG: Yes Frequent low Blood sugar: No Has supply of glucagon: Yes Type: type 2 Glucose control symptoms: Reports hypoglycemic with activity Pertinent visit history: Denies recent 911 calls Self monitoring: Yes Glucometer type: accucheck Percentage of fasting blood glucose within goal: most of the time Diabetes education in past year: Yes Glucose testing: demonstrates correct use of meter Exam Const General: healthy appearing, comfortable, no acute distress Nutritional Appearance: average body habitus Orientation: oriented x3 HENMT Head: normal to inspection, atraumatic Ears: hearing grossly normal bilaterally Nose: no nasal discharge Mouth: oral mucosae normal, moist mucous membranes Teeth and gingiva: dentition normal Eyes General: appearance normal, both eyes and all related structures Eyelids: eyelids normal Conjunctivae: conjunctivae normal Sclera: sclerae normal Neck Neck: normal visual inspection Chest Chest palpation AND inspection: deferred Resp Effort AND Inspection: normal respiratory effort, able to speak in complete sentences, symmetric chest movement Cardio Rate: regular rate Rhythm: regular rhythm Heart Sounds: S1 normal, S2 normal GI Inspection: normal to inspection Auscultation: normal bowel sounds Palpation: soft Skin General: no rashes or lesions noted Wounds: no wounds Neuro General: gait normal, moves all extremities Cranial Nerves: CN's II-XI intact bilaterally Extrem General: normal to inspection, full ROM, normal capillary refill Psych Appearance: well kempt Mental Status: mental status grossly normal Mood: congruent mood Affect: normal affect Speech and Movement: speech and movement normal Attitude: cooperative Thought Process: normal Thought Content: normal Judgment: judgment good Intake Vital Signs08/31/17 Height 5 ft 9.5 in 08/31/17 Weight: 164 lb 08/31/17 Body Mass Index (BMI) 23.8 08/31/17 Blood Pressure 117/65 08/31/17 Blood Pressure Location Lt brachial Intake Visit Reasons: 6 wk FU Head Of History Required: No Is patient in pain?: No Allergies Antihistamines - Alkylamine Allergy (Verified 07/20/17 14:17) Other SHRIMP Allergy (Uncoded 07/20/17 14:17) Anaphylaxis Medications acetylcysteine (bulk) powder ea MISCELLANEOUS 07/20/17 [History Confirmed 08/31/17] aspirin 81 mg tablet,delayed release 81 mg PO QDAY 07/20/17 [History Confirmed 08/31/17] cholecalciferol (vitamin D3) 1,000 unit capsule 1,000 unit PO QDAY cap 07/20/17 [History Confirmed 08/31/17] cinnamon bark 500 mg capsule mg PO 07/20/17 [History Confirmed 08/31/17] insulin aspart U-100 100 unit/mL subcutaneous solution See Label Instructions SC QDAY 07/20/17 [History Confirmed 08/31/17] insulin glargine (U-100) 100 unit/mL (3 mL) subcutaneous pen 15 unit SC QDAY 07/20/17 [History Confirmed 08/31/17] lisinopril 5 mg tablet 5 mg PO QDAY 07/20/17 [History Confirmed 08/31/17] lovastatin 20 mg tablet 20 mg PO QDAY 07/20/17 [History Confirmed 08/31/17] magnesium 200 mg tablet 400 mg PO QDAY tab 07/20/17 [History Confirmed 08/31/17] metformin 500 mg tablet 500 mg PO BID 07/20/17 [History Confirmed 08/31/17] multivitamin capsule 1 cap PO QDAY 07/20/17 [History Confirmed 08/31/17] saw palmetto fruit 450 mg capsule 450 mg PO QDAY cap 07/20/17 [History Confirmed 08/31/17] sertraline 50 mg tablet 50 mg PO QDAY 07/20/17 [History Confirmed 08/31/17] thisilyn PO 07/20/17 [History Confirmed 08/31/17] [facility] Medical History Back problem (Acute) Diabetes type 2, controlled (Acute) H/O: pneumonia (Acute) Surgical History History of tonsillectomy (Acute) Family History Unknown Cancer Diabetes Kidney stones CVA (cerebral vascular accident) Social History Smoking Status: Never smoker alcohol intake: current alcohol intake frequency: a few times a month substance use type: does not use Assessment AND Plan Problems 1. Controlled type 2 diabetes mellitus without complication, with long-term current use of insulin E11.9; Z79.4 Plan With decrease in lantus dose patient has been able to avoid low BG for the most part. 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 He is having some low BG during work hours and after. Pt denies difficulty with injections or self monitoring of BG. Denies any signs of infection or irritation at site of injections. Reports taking insulin as directed Patient Instructions Be sure 3:30 meal before work has protein component Take 1-2 units less for 3:30 meal to determine if you avoid low. Trial lantus 12 on days you are going to work to see if this allows you to avoid low BG after work Trial snack 2 hours into work shift. Labs due in September, done by PCP BP controlled. Eye exam up to date Plan Detail Additional Comments 1. Please schedule follow up in 2 months. 2. Lab work one week before appointment. 3. Discussed importance of regular exercise and recommend starting or continuing a regular exercise program for good health. 4. The patient was encouraged to lose weight for good health 5. The importance of monitoring blood sugar regularly was reviewed. 6. The importance of monitoring the HBA1c level regularly was reviewed. 7. The importance of prper foot care and regularly checking feet to prevent sores and loss of limbs was reviewed. 8. The importance of keeping BP at or below 130/80 to prevent stroke, heart attacks, kidney failure, blindness was reviewed. Spent approximately 30 minutes with patient with over 50% of time spent in discussion and counseling regarding medication adjustment, symptoms and treatment of hypoglycemia, diet adherence, and checking BG before driving. Coding Level of Care Code Off vis,est,level 3 Diagnoses Controlled type 2 diabetes mellitus without complication, with long-term current use of insulin E11.9; Z79.4 Diabetes mellitus jail insulin use: with jail use Time Spent (min) 30 08/31/17 1254 <Electronically signed by Migdalia RAMOS> Date Migdalia RAMOS Cosigner Signature: Date (if applicable) CC: ALLERGIES ALLERGIES DATE TYPE / CODE NAME / CODE REACTION SEVERITY SOURCE Drug Antihistamines - Other Unknown [place] 8 Allergy/[id number] Alkylamine/[id number] [facility] (SNOMED [facility]) 797(RXNORM) Hospital Repository Miscellaneous SHRIMP Anaphylaxis Unknown [place] 8 Allergy/[id number] [facility] (SNOMED [facility]) Hospital Repository Miscellaneous OTHER ANAPHYLAXIS [place] [address] Allergy/[id number] [facility] ([place]) [place] Repository ENCOUNTERS ENCOUNTERS ADMIT/DISCHARGE ACCOUNT ADMITTING ENCOUNTER LOCATION SOURCE NUMBER CLASS 06/20/2018 [id number] [facility] Rep[facility] 06/19/2018/06/19/20 [id number] Amb[facility] [facility] [place] 05/08/2018 [id number] [facility]LAB Repository 03/28/2018 [id number] [facility]LAB Repository 03/27/2018/03/27/20 [id number] Ambulatory BMSBuilding:B [place] 18 [facility] Repository 02/14/2018/02/16/20 [id number] Ambulatory [address] Repository 02/11/2018 [id number] [facility] Repository 01/31/2018/02/02/20 [id number] Ambulatory [address] Repository 01/27/2018/01/28/20 [id number] [place] [facility] Rep[place] 01/11/2018/01/12/20 [id number] Ambulatory [place] [facility] [facility] 01/02/2018 [id number] [facility] Rep[facility] 12/27/2017/12/28/19 [id number] Ambulatory BMSBuilding:[facility] [place] [facility] 12/14/2017/01/01/20 [id number] Ambulatory [place] [facility] Rep[facility] 11/23/2017/12/02/19 [id number] Ambulatory [place] [facility] Rep[facility] 11/14/2017/11/17/19 [id number] Ambulatory [address] Repository 10/25/2017/10/26/19 [id number] Ambulatory BMSBuilding:[place] [facility] 10/06/2017/11/01/19 [id number] Ambulatory [place] [facility] Rep[facility] 10/04/2017 [id number] [facility] [place] [facility] Rep[facility] 10/04/2017/10/05/19 [id number] Ambulatory [address] Repository 09/06/2017/10/02/19 [id number] Ambulatory [place] 18 [facility] ing:DC Repository 08/31/2017/08/31/19 [id number] Ambulatory BMSBuilding:B [place] [facility] [place] 08/24/2017/08/31/19 [id number] Ambulatory [place] ing:DC Repository PAYERS PAYERS ENCOUNTER GUARANTOR PAYER SUBSCRIBER SOURCE 06/20/2018 WESLEY [id number] Primary WESLEY LAKEB: [place] LR, Insurance:[facility] C[facility] [id number] Valley Medical Center [address]Tjq: [facility]AREPolicy Hospital Number: Repository () [id number] Date:4328-76-47GU [address] [place] [address]EH: 06/20/2018 Secondary NOT GIVENUNK [place] Insurance:SELF PAY [facility] Number: Effective Repository Date:2018-06-20 06/19/2018 WESLEY GLEASON1 Primary WESLEY LAKEB: Hern[place]osanjuana GARCÍA ADELINE, Insurance:[facility] [id number] Valley Medical Center [address]Inr: MEDICAREPolicy Hospital Number: Repository () [id number] Date:4742-24-97LV [address], [place] [address]BV: 06/19/2018 Secondary NOT GIVENUNK [place] Insurance:SELF PAY [facility] Number: Effective Repository Date:2018-06-19 05/08/2018 WESLEY GLEASON1 Primary WESLEY LAKEB: Walthamsanjuana GARVEYTino LR, Insurance:[facility] CARE [id number] Valley Medical Center [address]Com: MEDICAREPolicy Hospital Number: Repository () [id number] Date:9065-22-90HH [address] [place] [address]DC: 05/08/2018 Secondary NOT GIVENUNK [place] Insurance:SELF PAY [facility] Number: Effective Repository Date:2018-05-08 03/28/2018 WESLEY Tonia [id number] Primary WESLYE Randall KEKEIMDOB: [place] RICKY STEVENSONSTER, Insurance:[facility] [id number] Valley Medical Center [address]Aas: MEDICAREPolicy Hospital Number: Repository () [id number] Date:7899-98-93IY [address] [address]DA: 03/28/2018 Secondary NOT GIVENUNK [place] Insurance:SELF PAY [facility] Number: Effective Repository Date:2018-03-28 03/27/2018 WESLEY Tonia [id number] Primary WESLEY Randall LICODOB: [place] RICKY STEVENSONSTER, [facility] [id number] Valley Medical Center [address]Qdu: MEDICAREPolicy Hospital Number: Repository () [id number] Date:4884-81-19TM [address], [place] [address]IY: 03/27/2018 Secondary NOT GIVENUNK [place] Insurance:SELF PAY [facility] Number: Effective Repository Date:2018-03-27 02/11/2018 WESLEY Randall [id number] Primary WESLEY Randall LICODOB: [place] RICKY BARRYER, [facility] [id number] Valley Medical Center [address]Rcw: MED[facility]AREPolicy Hospital Number: Repository () [id number] Date:2004-91-15QI [address], [place] [address]MV: 02/11/2018 Secondary NOT GIVENUNK [place] Insurance:SELF PAY [facility] Number: Effective Repository Date:2018-02-01 01/27/2018 WESLEY Tonia [id number] Primary WESLEY Randall KEKEIMDOB: [place] RICKY DRJACQUELINESTER, Insurance:[facility] [id number] Valley Medical Center [address]Jge: MEDICAREPolicy Hospital Number: Repository () [id number] Date:3350-16-28NL [address] [address]OG: 01/27/2018 Secondary NOT GIVENUNK [place] Insurance:SELF PAY [facility] Number: Effective Repository Date:2018-01-27 01/11/2018 WESLEY Tonia [id number] Primary WESLEY Randall KEKEIMDOB: [place] RICKY BARRYER, Insurance:[facility] [id number] Valley Medical Center [address]Ave: MEDICAREPolicy Hospital Number: Repository () [id number] Date:6389-67-46[address] [address]UC: 01/11/2018 Secondary NOT GIVENUNK [place] Insurance:SELF PAY [facility] Number: Effective Repository Date:2018-01-01 01/02/2018 WESLEY Tonia [id number] Primary WESLEY Randall KEKEIMDOB: [place] RICKY BARRYER, Insurance:[facility] [id number] Valley Medical Center [address]Gwf: MED[facility]AREPolicy Hospital Number: Repository () [id number] Date:2800-91-38EX [address] [address]PW: 01/02/2018 Secondary NOT GIVENUNK [place] Insurance:SELF PAY [facility] Number: Effective Repository Date:2018-01-02 12/27/2017 WESLEY Tonia [id number] Primary WESLEY Randall LICODOB: [place] RICKY BARRYER, Insurance:[facility] [id number] Valley Medical Center [address]Uut: MEDICAREPolicy Hospital Number: Repository () [id number] Date:1237-53-67CB [address] [address]LV: 12/27/2017 Secondary NOT GIVENUNK [place] Insurance:SELF PAY [facility] Number: Effective Repository Date:2017-12-27 12/14/2017 WESLEY Tonia [id number] Primary WESLEY Randall KEKEIMDOB: [place] LR, [facility] [id number] [place] [id number]: MEDICAREPolicy Hospital Number: Repository () [id number] Date:7922-30-39OR [address], [place] [address]OM: 12/14/2017 Secondary NOT GIVENUNK [place] Insurance:SELF PAY [facility] Number: Effective Repository Date:2017-12-02 11/23/2017 WESLEY Tonia [id number] Primary WESLEY Randall KEKEIMDOB: [place] RICKY LR, Insurance:[facility] CARE [id number] [place] [address]Ncr: MEDICAREPolicy Hospital Number: Repository () [id number] Date:6367-82-30GM [address] [place] [address]MR: 11/23/2017 Secondary NOT GIVENUNK [place] Insurance:SELF PAY [facility] Number: Effective Repository Date:2017-11-01 10/25/2017 WESLEY Tonia [id number] Primary WESLEY Randall KEKEIMDOB: [place] LR, [facility] [id number] [place] [address]Suy: MEDICAREPolicy Hospital Number: Repository () [id number] Date:5484-99-60JO [address], [place] [address]ND: 10/25/2017 Secondary NOT GIVENUNK [place] Insurance:SELF PAY [facility] Number: Effective Repository Date:2017-10-25 10/06/2017 WESLEY Tonia [id number] Primary WESLEY Randall KEKEIMDOB: [place] LR, [facility] [id number] [place] [id number]: MEDICAREPolicy Hospital Number: Repository () [id number] Date:6909-27-31SF [address] [place] [address]ZY: 10/06/2017 Secondary NOT GIVENUNK [place] Insurance:SELF PAY [facility] Number: Effective Repository Date:2017-10-02 10/04/2017 WESLEY Tonia [id number] Primary WESLEY Randall LICODOB: [place] RICKY DRJACQUELINESTER, Insurance:[facility] [id number] Valley Medical Center [address]Ipa: MEDICAREPolicy Hospital Number: Repository () [id number] Date:8502-90-99VC [address] [address]NX: 10/04/2017 Secondary NOT GIVENUNK [place] Insurance:SELF PAY [facility] Number: Effective Repository Date:2017-10-04 09/06/2017 WESLEY Tonia [id number] Primary WESLEY Randall LICODOB: [place] ELTino DRJACQUELINESTER, [facility] [id number] Valley Medical Center [address]Ioo: MEDICAREPolicy Hospital Number: Repository () [id number] Date:9427-56-57GA [address] [address]SX: 09/06/2017 Secondary NOT GIVENUNK [place] Insurance:SELF PAY [facility] Number: Effective Repository Date:2017-09-01 08/31/2017 WESLEY Randall [id number] Primary WESLEY Randall LICODOB: [place] RICKY STEVENSONSTER, [facility] [id number] Valley Medical Center [address]Yjz: MEDICAREPolicy Hospital Number: Repository () [id number] Date:3295-96-28CQ [address] [address]RI: 08/31/2017 Secondary NOT GIVENUNK [place] Insurance:SELF PAY [facility] Number: Effective Repository Date:2017-07-20 08/24/2017 WESLEY Tonia [id number] Primary WESLEY Randall LICODOB: [place] ELM DRWFILISTER, Insurance:[facility] [id number] Valley Medical Center [address]Tkz: MEDICAREPolicy Hospital Number: Repository () [id number] Date:1361-47-07KM [address] [place] [address]QU: 08/24/2017 Secondary NOT GIVENUNK [place] Insurance:SELF PAY [facility] Number: Effective Repository Date:2017-08-04
== END ==
PROVIDERS: Family Provider Family Medicine; PCP Family Medicine; Referring Provider Nurse Practitioner; Visit Provider Nurse Practitioner
DX: E10.9 Type 1 diabetes mellitus without complications (principal)
CPT/HCPCS: 36415; 80053; 80061; 83036; 84443

== ENCOUNTER → 2018-08-30 10:29 | Outpatient (CLI) | payer MEDICARE, SELFPAY ==
[2018-06-19 09:26] VITALS: BMI 24.1
[2018-08-30 11:37] LABS: Free T3 2.2 pg/mL (2.18-3.98); T4 Free Direct 0.81 ng/dL (0.76-1.46); Thyroid Stim Hormone (TSH) 4.36 uIU/mL (0.358-3.74)
== END ==
PROVIDERS: Family Provider Family Medicine; PCP Family Medicine; Referring Provider Nurse Practitioner; Visit Provider Nurse Practitioner
DX: E03.9 Hypothyroidism, unspecified (principal); E11.9 Type 2 diabetes mellitus without complications
CPT/HCPCS: 36415; 84439; 84443; 84481

== ENCOUNTER → 2019-01-09 17:02 | Outpatient (CLI) | payer MEDICARE, SELFPAY ==
[2018-06-19 09:26] VITALS: BMI 24.1
[2019-01-09 17:27] LABS: Thyroid Stim Hormone (TSH) 3.77 uIU/mL (0.358-3.74)
== END ==
PROVIDERS: Family Provider Family Medicine; PCP Family Medicine; Visit Provider Family Medicine
DX: E03.9 Hypothyroidism, unspecified (principal)
CPT/HCPCS: 84443

== ENCOUNTER → 2019-02-16 12:17 | Outpatient (CLI) | payer MEDICARE, SELFPAY ==
[2018-06-19 09:26] VITALS: BMI 24.1
[2019-02-16 12:51] LABS: Hemoglobin A1c 6.5 % (4.2-6.3)
[2019-02-16 12:54] LABS: ALB/GLOB Ratio 1.1 RATIO (0.9-2.4); AST(SGOT) 24 U/L (15-37); Alanine Aminotransfer ALT/SGPT 30 U/L (16-61); Albumin, Serum 3.5 g/dL (3.2-5.0); Alkaline Phosphatase 84 U/L (45-117); Anion Gap 4 (5-15); BUN 18 mg/dL (7-18); BUN/Creat Ratio 17.8 RATIO (10-20); Calcium,Total 8.6 mg/dL (8.5-10.1); Chloride 106 mmol/L (98-107); Creatinine, Serum 1.01 mg/dL (0.70-1.30); EST Glomerular Filtration Rate 77 mL/min (>60); Est Glom Filt Rate - Afr Amer 93 mL/min (>60); Globulin 3.1 g/dL (2.2-4.2); Glucose 183 mg/dL (74-106); Potassium 4.4 mmol/L (3.5-5.1); Protein, Total 6.6 g/dL (6.4-8.2); Sodium Level 139 mmol/L (136-145)
== END ==
PROVIDERS: Family Provider Family Medicine; PCP Family Medicine; Referring Provider Family Medicine; Visit Provider Family Medicine
DX: E11.9 Type 2 diabetes mellitus without complications (principal); Z79.4 Long term (current) use of insulin
CPT/HCPCS: 80053; 83036

== ENCOUNTER → 2019-03-19 12:34 | Outpatient (CLI) | payer MEDICARE, SELFPAY ==
[2018-06-19 09:26] VITALS: BMI 24.1
== END ==
PROVIDERS: Family Provider Family Medicine; PCP Family Medicine
DX: R35.0 Frequency of micturition (principal)
CPT/HCPCS: 87086; 87088

== ENCOUNTER → 2019-06-14 12:18 | Outpatient (CLI) | payer MEDICARE, SELFPAY ==
[2018-06-19 09:26] VITALS: BMI 24.1
[2019-06-14 13:23] LABS: Vitamin B12 664 pg/mL (211-911)
[2019-06-14 13:36] LABS: ALB/GLOB Ratio 1.1 RATIO (0.9-2.4); AST(SGOT) 18 U/L (15-37); Alanine Aminotransfer ALT/SGPT 21 U/L (16-61); Albumin, Serum 3.7 g/dL (3.2-5.0); Alkaline Phosphatase 67 U/L (45-117); Anion Gap 4 (5-15); BUN 16 mg/dL (7-18); BUN/Creat Ratio 14.8 RATIO (10-20); Chloride 107 mmol/L (98-107); Cholesterol 141 mg/dL (200); Creatinine, Serum 1.08 mg/dL (0.70-1.30); EST Glomerular Filtration Rate 71 mL/min (>60); Est Glom Filt Rate - Afr Amer 86 mL/min (>60); Globulin 3.3 g/dL (2.2-4.2); Glucose 118 mg/dL (74-106); High Density Lipoprotein 58 mg/dL; Potassium 4.3 mmol/L (3.5-5.1); Sodium Level 140 mmol/L (136-145); Triglycerides 86 mg/dL; Very Low Density Lipoprotein 17 mg/dL (5-40)
[2019-06-14 14:15] LABS: Microalbumin,Random Urine < 5.0 mg/L (NO RANGE EST.)
[2019-06-18 11:20] LABS: Hemoglobin A1c 6.9 % (4.2-6.3)
== END ==
PROVIDERS: Family Provider Family Medicine; PCP Family Medicine; Referring Provider Family Medicine; Visit Provider Family Medicine
DX: E11.9 Type 2 diabetes mellitus without complications (principal); E78.5 Hyperlipidemia, unspecified; Z79.4 Long term (current) use of insulin
CPT/HCPCS: 80053; 80061; 82043; 82570; 82607; 83036; 84443

== ENCOUNTER → 2019-08-15 12:27 | Outpatient (CLI) | payer MEDICARE, SELFPAY ==
[2018-06-19 09:26] VITALS: BMI 24.1
[2019-08-15 13:25] LABS: Hemoglobin A1c 6.6 % (4.2-6.3)
[2019-08-15 13:27] LABS: Thyroid Stim Hormone (TSH) 6.94 uIU/mL (0.358-3.74)
== END ==
PROVIDERS: PCP Family Medicine; Referring Provider Nurse Practitioner Family; Visit Provider Nurse Practitioner Family
DX: E11.9 Type 2 diabetes mellitus without complications (principal); E03.9 Hypothyroidism, unspecified; Z79.4 Long term (current) use of insulin
CPT/HCPCS: 83036; 84443

== ENCOUNTER 2019-09-04 07:00 | Outpatient (RCR) | payer MEDICARE, SELFPAY ==
[2018-06-19 09:26] VITALS: BMI 24.1
--- NOTE | 2019-06-19 08:17 | HP.PTEVAL_ITS ---
Patient's Visit Information WESLEY BARFIELD is a 74 year old M referred to Physical Therapy by Virginie Heredia NP- C with a diagnosis of DDD,LUMBAR RADICULOPATHY. Date of Evaluation: 06/19/19 Physical Therapist: Wesley Manley PT, Cert MDT, OCS - Visit Plan Frequency: 1-2x /Week Duration: 4 Weeks Plan: PT INTERENTIONS CARMEL EX'S,DLS,LE FLEXABLITY ,POSTURAL EX'S - Subjective Findings: This 74 y/o male presents to physical therapy with lumbar radiculopathy .Patient has lumbar lumbar radiculopthy. Patient seen DRintparamjit had pain in thigh and knee. Patient did x-rays of knee. Patient was recommended to see DR [facility] for knee. Patient had PT symptoms are . But ,patient stated had a set back with pain. Denies parathesia/tingling. Bowel/bowel bladder-. Coughing/sneezing. Pateint located in knee groin thigh. Aggravating factors driving,bending.,lifting,walking.Alleviating patient symptoms walking ,on the move. Patient pain pain affects sleeping. Patient pain affects ADL's and houswork tasks. Patient has no trauma. Patient symptoms affects QOL and function. SOCIAL: single. VOCATION: retired - Pain Right Knee Pain Intensity (Out of 10): 3 Pain Intensity Range: 10 - Objective POSTURE: mild foward posture. GAIT : mild antalgic gait mild foward posture. NEURO: denies paratghesia/tingling ,reflexes L3-4,L4-5,L5-S1. PALAPTION: unremarkable. FLEXABLITY: hams min/mod tight. AROM: 0-145 degrees no pain. MMT: 4/5 quads/hams/hip anklde. LUMBAR ROM: flexion mod limited ,extension min loss,side glides min loss - Special Tests L/S Slump test left side: Negative L/S Slump test right side: Positive L/S Left Straight Leg Raise: Negative L/S Right Straight Leg Raise: Positive - Goals Goal 1:: Patient to be I with HEP. Goal Time Frame: 4-6 Weeks Goal 2:: Patient to be I with posture/body mechanics. Goal Time Frame: 4-6 Weeks Goal 3:: Patient to decrease back pain by 50% or > to improve QOL/function. Goal Time Frame: 4-6 Weeks Goal 4:: Patient to improve lumbar ROM for function of recovery Goal Time Frame: 4-6 Weeks Goal 5:: Patient to improve back owestry score by 5 points > to improve QOL. Goal Time Frame: 4-6 Weeks - Rehabilitation Potential Physical Therapy Diagnosis: Patient has lumbar radiculopathy with symtoms radiating to medial thigh calf worse with flexion better with extension and walking thus benifit from skilled PT. Rehabilitation Potential: Good - Anticipated Interventions Patient/Client Instruction: Educate patient on: Condition, Plan of Care For the Purpose of:: To decrease pain, To increase ROM, To improve muscle performance and motor function, To improve ability to perform ADL's, To increase tolerance to activity/condition/position, To improve ability of physical actions for home/community/work/leisure, To improve health of tissue, To decrease soft tissue restriction, To reduce risk of recurrence, To improve ability to perform tasks related to life management Therapeutic Exercise to Include: Strength training, Body mechanics, Postural training, Flexibilty training, Dynamic Lumbar Stabilization, Carmel Exercises For the Purpose of:: To decrease pain, To increase ROM, To improve muscle pe rformance and motor function, To improve ability to perform ADL's, To increase tolerance to activity/condition/position, To improve ability of physical actions for home/community/work/leisure, To improve health of tissue, To decrease soft tissue restriction, To increase flexibility/ROM, To reduce risk of recurrence, To improve ability to perform tasks related to life management TENS: Yes IF ES: Yes Cryotherapy (ice pack, ice massage): Yes Thermo therapy (hot pack): Yes Ultrasound (thermal/non thermal): Yes For the Purpose of:: To decrease pain, To increase ROM, To improve nutrient delivery to tissue, To increase oxygenation perfusion, To improve health of tissue, To decrease soft tissue restriction Thank you for the opportunity to evaluate your patient. For Medicare and Medicare HMO plans, please review the plan of care and approve it. It will need to be FAXED BACK to us at [phone] for Medicare purposes. For Medicare only, by signing this I certify the plan of care. Please let me know if there are questions or concerns regarding this plan of care. Physician Signature: Date:
--- NOTE | 2019-09-04 07:26 | HP.PTDCSUM_ITS ---
HP - PT D/C Summary It has been my pleasure to treat WESLEY BARFIELD under orders from Virginie Heredia NP- C, for the diagnosis of DDD,LUMBAR RADICULOPATHY for a total of 10 visit(s). Discharge Date: Please see the following information for a summary of their discharge status. - Subjective Subjective: Patient conts with intermittant pain medial knee. No pain today ,pain worse at night, Improvement with ADL'S and housework tasks - Pain Right Knee Pain Intensity (Out of 10): 0 Bilateral Back Pain Intensity (Out of 10): 0 - Overall Improvement % Improvement: 90 - Objective Objective/Function: POSTURE: MILD FOWARD POSTURE. GAIT: NORMALCADENCE. MMT: QUADS/HAMS/HAMS/ANKLE 4/5. LUMBAR ROM: FLEXION MIN LOSS,EXTENSION MIN/MOD LOSS - Goals Goal 1:: Patient to be I with HEP. Goal 2:: Patient to be I with posture/body mechanics. Goal 3:: Patient to decrease back pain by 50% or > to improve QOL/function. Goal 4:: Patient to improve lumbar ROM for function of recovery Goal 5:: Patient to improve back owestry score by 5 points > to improve QOL. - Plan Plan: D/C TO HEP AND GYM - D/C Information If there are questions or concerns regarding this patient's physical therapy, please feel free to call me at [phone]. Thank you for the referral of this patient. Sincerely, Wesley Manley, PT, Cert MDT, OCS
== END 2019-09-04 19:00 | disposition home or self-care (01) ==
LOC: PT 07:00
PROVIDERS: Family Provider Family Medicine; PCP Family Medicine; Referring Provider Nurse Practitioner Family; Visit Provider Nurse Practitioner Family
DX: M51.36 Other intervertebral disc degeneration, lumbar region (principal); M54.16 Radiculopathy, lumbar region
CPT/HCPCS: 97014; 97110; 97162; 97530; G0283

== ENCOUNTER → 2019-12-11 | Outpatient (CLI) | payer MEDICARE, SELFPAY ==
[2018-06-19 09:26] VITALS: BMI 24.1
[2019-12-11 13:54] LABS: Thyroid Stim Hormone (TSH) 3.75 uIU/mL (0.358-3.74)
[2019-12-11 13:56] LABS: Hemoglobin A1c 6.3 % (3.8-5.6)
== END | disposition home or self-care (01) ==
LOC: LABSPEC 13:12
PROVIDERS: PCP Family Medicine; Referring Provider Family Medicine; Visit Provider Family Medicine
DX: E11.9 Type 2 diabetes mellitus without complications (principal); E03.9 Hypothyroidism, unspecified; Z79.4 Long term (current) use of insulin
CPT/HCPCS: 83036; 84443

== ENCOUNTER 2020-03-18 08:00 | Outpatient (RCR) | payer MEDICARE, SELFPAY ==
[2018-06-19 09:26] VITALS: BMI 24.1
--- NOTE | 2020-02-19 08:25 | HP.PTEVAL_ITS ---
Patient's Visit Information WESLEY BARFIELD is a 75 year old M referred to Physical Therapy by GAB Laguna with a diagnosis of Chronic L sided LBP with sciatica. Date of Evaluation: 02/19/20 Physical Therapist: JO ANN Morales - Visit Plan Frequency: 2x /Week Duration: 4 Weeks Plan: 2X/ week for 4 weeks for increase Trunk AROM (including press ups), increase HS flexability, increase LE strength (libby the L), and core stability, stretching, postural exercises with HEP and modalities if needed. - Subjective Pt has history of being in PT. He was here in PT last Jun and last year as well. He has a HD. The first time he had this it threw him to the ground each time. This time he has been in severe pain for 7-8 days and pain did not go away. He had an x-ray at [facility]. He is bad between L5-S1 and L3 and L4. The x- rays were bad... worse than severe. He asked for an MRI and it was declined. He does his exercises at home and used to come to fairly religiously. The exercises do help some. He is taking IBprofen and a skin patch that only works a short time. He has another cream that helps a lot. Currently he feels pretty good but scary that it will just come on when he wants. Pain will be in LB and L buttock and down his L thigh. This time is is also on the R side of his back and his R knee at times. More recent it is on the L. He is worse with sitting too long (greater than 10 min). Problems is getting up. He reports that he has no weakness. Bending fw bothers him and he does not take the risk. Pt last time consisted of SLR, CLam shells, s/L hip abd, prone hip extension, HS stretching and SKC. He reports that he takes potassium pills for calf cramps. He reports no problems with stairs... jest has to be careful. - Pain back pain Pain Intensity (Out of 10): 0 R leg pain Pain Intensity (Out of 10): 0 L leg pain Pain Intensity (Out of 10): 0 - Objective Gait: Walks with a normal gait pattern. Trunk AROM: Flexion 25%, Ext 25%, SB R 75% and SB L 75%. LE MMT: R hip flex 4/5 and L 4-/5, R knee ext 4+/5 and L 4/5, R knee flex 4+/5 and L 4-/5, R hip abd 4+/5 and L 4-/5, R hip ext 4/5 and L 4-/5. Extremely tight B HS. Walk on heels and toes... pt is able to do both. Patellar DTR's 1+/3 B. Press ups.. abd to do but extremely limited in extension - Goals Goal 1:: I HEP Goal Time Frame: 4-6 Weeks Goal 2:: Increase trunk AROM extension to 50% normal ROM and flexion to 50% normal ROM Goal Time Frame: 4-6 Weeks Goal 3:: Increase LE strength by 1/2 muscle grade (at the time of the eval: LE MMT: R hip flex 4/5 and L 4-/5, R knee ext 4+/5 and L 4/5, R knee flex 4+/5 and L 4-/5, R hip abd 4+/5 and L 4-/5, R hip ext 4/5 and L 4-/5). Goal Time Frame: 4-6 Weeks Goal 4:: Increase HS flexability to be able to get to -40 degrees in 90/90 position B with out pain Goal Time Frame: 4-6 Weeks - Rehabilitation Potential Rehabilitation Potential: Good - Anticipated Interventions Patient/Client Instruction: Educate patient on: Condition, Plan of Care For the Purpose of:: To decrease pain, To increase ROM, To improve muscle performance and motor function, To improve ability to perform ADL's, To increase tolerance to activity/condition/position, To improve ability of physical actions for home/community/work/leisure, To improve health of tissue, To decrease soft tissue restriction, To increase flexibility/ROM Therapeutic Exercise to Include: Strength training, Body mechanics, Postural training, Flexibilty training, Gait and locomotor training, Neuromotor development, Passive ROM, Active ROM, Dynamic Lumbar Stabilization, [place]ira Exercises, Scapular Strength/Stabilization For the Purpose of:: To decrease pain, To increase ROM, To improve nutrient delivery to tissue, To improve muscle performance and motor function, To improve ability to perform ADL's, To increase tolerance to activity/condition/position, To improve performance and independence with ADL's, To decrease level of supervision to perform tasks, To improve ability of physical actions for home/community/work/leisure, To improve health of tissue, To decrease soft tissue restriction, To increase flexibility/ROM Cryotherapy (ice pack, ice massage): Yes Thermo therapy (hot pack): Yes For the Purpose of:: To decrease pain, To increase ROM, To improve nutrient delivery to tissue Thank you for the opportunity to evaluate your patient. For Medicare and Medicare HMO plans, please review the plan of care and approve it. It will need to be FAXED BACK to us at [phone] for Medicare purposes. For Medicare only, by signing this I certify the plan of care. Please let me know if there are questions or concerns regarding this plan of care. Physician Signature: Date:
--- NOTE | 2020-03-18 08:26 | HP.PTDCSUM ---
It has been my pleasure to treat WESLEY BARFIELD referred by RACHEL Laguna, with the diagnosis of Chronic L sided LBP with sciatica for a total of 9 visit(s). Discharge Date: 03/18/20 Please see the following information for a summary of their discharge status. Subjective: Pt reports that he has not had back or leg pain for awhile. He feels that he may have injured a rib... but he is ok right now. He feels that he may have stretched an exercise too far. Pt reports that he can not wear his mask right due to scarred lungs. He has been doing his HEP religiously. He plans on coming into to do his exercises as well. back pain Pain Intensity (Out of 10): 0 R leg pain Pain Intensity (Out of 10): 0 L leg pain Pain Intensity (Out of 10): 0 % Improvement: 100 Objective/Function: HS length on the R -35 degrees from neutral in 90/90 position. HS length on the L -32 degrees from neutral in 90/90 position. Trunk AROM: flex 75% and ext 75%. LE MMT: R hip flex 4/5 and L 4/5, R knee ext 4+/5 and L 4+/5, R knee flex 4+/5 and L 4+/5, R hip abd 4-/5 and L 4-/5, R hip ext 4/5 and L 4-/5). Goal 1:: I HEP Goal Progress: Goal Met Goal 2:: Increase trunk AROM extension to 50% normal ROM and flexion to 50% normal ROM Goal Progress: Goal Met Goal 3:: Increase LE strength by 1/2 muscle grade (at the time of the eval: LE MMT: R hip flex 4/5 and L 4-/5, R knee ext 4+/5 and L 4/5, R knee flex 4+/5 and L 4-/5, R hip abd 4+/5 and L 4-/5, R hip ext 4/5 and L 4-/5). Goal Progress: Progressing Goal 4:: Increase HS flexability to be able to get to -40 degrees in 90/90 position B with out pain Goal Progress: Goal Met Plan: DC PT to HEP.. Discharge Comments: DC PT to HEP If there are questions or concerns regarding this patient's physical therapy, please feel free to call me at [phone]. Thank you for the referral of this patient. Sincerely, Sierra Marquez, MPT
== END 2020-03-18 19:00 | disposition home or self-care (01) ==
LOC: PT 08:00
PROVIDERS: PCP Family Medicine; Referring Provider Nurse Practitioner Family; Visit Provider Nurse Practitioner Family
DX: M54.42 Lumbago with sciatica, left side (principal); G89.29 Other chronic pain
CPT/HCPCS: 97110; 97161; 97530

== ENCOUNTER → 2020-05-16 12:35 | Outpatient (CLI) | payer MEDICARE, SELFPAY ==
[2018-06-19 09:26] VITALS: BMI 24.1
[2020-05-16 13:43] LABS: Hemoglobin A1c 6.6 % (3.8-5.6)
== END ==
PROVIDERS: PCP Family Medicine; Referring Provider Family Medicine; Visit Provider Family Medicine
DX: E11.9 Type 2 diabetes mellitus without complications (principal); Z79.4 Long term (current) use of insulin
CPT/HCPCS: 83036

== ENCOUNTER → 2020-10-23 12:46 | Outpatient (CLI) | payer MEDICARE, SELFPAY ==
[2018-06-19 09:26] VITALS: BMI 24.1
[2020-10-23 13:40] LABS: Cholesterol 154 mg/dL (200); High Density Lipoprotein 66 mg/dL; Triglycerides 69 mg/dL; Very Low Density Lipoprotein 14 mg/dL (5-40)
[2020-10-23 13:45] LABS: Hemoglobin A1c 6.6 % (3.8-5.6)
[2020-10-23 13:50] LABS: Microalbumin,Random Urine < 5.0 mg/L (NO RANGE EST.)
== END ==
PROVIDERS: PCP Family Medicine; Visit Provider Family Medicine
DX: E78.5 Hyperlipidemia, unspecified (principal); E11.9 Type 2 diabetes mellitus without complications; Z79.4 Long term (current) use of insulin
CPT/HCPCS: 80061; 82043; 82570; 83036

== ENCOUNTER → 2021-01-27 13:11 | Outpatient (CLI) | payer MEDICARE, SELFPAY ==
[2018-06-19 09:26] VITALS: BMI 24.1
[2021-01-27 14:07] LABS: Hemoglobin A1c 6.7 % (3.8-5.6); T4 Free Direct 1.11 ng/dL (0.76-1.46); Thyroid Stim Hormone (TSH) 2.41 uIU/mL (0.358-3.74)
== END ==
PROVIDERS: PCP Family Medicine; Visit Provider Nurse Practitioner Primary Care
DX: E11.9 Type 2 diabetes mellitus without complications (principal); E03.9 Hypothyroidism, unspecified; Z79.4 Long term (current) use of insulin
CPT/HCPCS: 83036; 84439; 84443

== ENCOUNTER → 2022-04-19 | Outpatient (CLI) | payer MEDICARE, SELFPAY ==
--- NOTE | 2022-04-19 12:13 | STRESSREP_ITS ---
Stress Test Report Date: 04-19-2022 Procedure: Exercise tolerance test Indications: Chest pain Consent: Per the patient Procedure: The patient exercised on a Carlos protocol for 6 minutes and 15 seconds completing Stage II and 15 seconds of Stage III achieving a peak heart rate of 134 bpm (94% predicted maximal heart rate) with a resting blood pressure of 1 16/81 mmHg and a peak blood pressure 160/64 mmHg and a peak MET capacity of approximately 7 MET's. The baseline ECG demonstrated normal sinus rhythm. The peak exercise ECG demonstrated somatic/motion artifact with no obvious ECG changes. There were no cardiac dysrhythmias pretest, during exercise, or recovery. The functional capacity was considered good. The patient had no complaint of chest discomfort during exercise or recovery. The examination was discontinued secondary to dyspnea. Impression: 1. Technically adequate (percent predicted maximal heart rate greater than 85%) exercise tolerance test 2. Peak exercise ECG with with somatic/motion artifact with no obvious ECG changes 3. There were no cardiac dysrhythmias during exercise or recovery This note was generated with [employer] software. It may contain incorrect words, spelling, and punctuation that were not noted in checking the note before signing.
== END | disposition home or self-care (01) ==
LOC: CVS 07:50
PROVIDERS: PCP Family Medicine; Referring Provider Family Medicine; Visit Provider Family Medicine
DX: R07.89 Other chest pain (principal)
CPT/HCPCS: 93017